=== PATIENT | female | born 1940 | race American Indian/Alaskan Native ===

== ENCOUNTER 2017-09-14 03:24 | Emergency (ER) | payer MEDICARE ==
[2017-09-14] MEDS ORDERED: ASPIRIN PO ONE (03:41)
[2017-09-14] MEDS ORDERED: NORMODYNE IV ONE ×2 (03:50→05:15)
[2017-09-14] MEDS ORDERED: SUBLIMAZE IV ONE (03:50)
[2017-09-14 04:01] LABS: Basophils % (Auto) 0.4 % (0.0-1.8); Eosinophils # (Auto) 0.1 K/mm3 (0.0-0.4); Eosinophils % (Auto) 2.2 % (0.0-4.3); Hematocrit 37.2 % (30.3-42.9); Hemoglobin 11.6 gm/dl (10.1-14.3); Lymphocytes # (Auto) 1.6 K/mm3 (1.2-5.4); Lymphocytes % (Auto) 30.3 % (13.4-35.0); Mean Corpuscular HGB Conc 31 % (30-34); Mean Corpuscular Volume 74 fl (79-97); Monocytes # (Auto) 0.4 K/mm3 (0.0-0.8); Monocytes % (Auto) 8.2 % (0.0-7.3); Platelet Count 248 K/mm3 (140-440); Red Blood Count 5.05 M/mm3 (3.65-5.03); Red Cell Distribution Width 14.9 % (13.2-15.2)
[2017-09-14 04:07] LABS: Mean Corpuscular Hemoglobin 23 pg (28-32)
[2017-09-14 04:14] LABS: BUN/Creatinine Ratio 17; Blood Urea Nitrogen 25 mg/dL (7-17); Calcium 9.4 mg/dL (8.4-10.2); Hemolysis Index 3
--- NOTE | 2017-09-14 04:16 | XRay Report ---
FINAL REPORT PROCEDURE: XR CHEST 1V AP TECHNIQUE: Chest radiograph anteroposterior view. CPT 66546 HISTORY: chest pain COMPARISON: No prior studies are available for comparison. FINDINGS: Heart: Normal. Mediastinum/Vessels: Normal. Lungs/Pleural space: Normal. Bony thorax: No acute osseous abnormality. Life support devices: None. IMPRESSION: No acute cardiopulmonary abnormality.
--- NOTE | 2017-09-14 05:20 | Emergency Department Report ---
HPI - General Chief Complaint: Chest Pain Time Seen by Provider: 09/14/17 04:54 - HPI HPI: The patient is a 77-year-old female who presents for evaluation of dyspnea and palpitations. The patient states that at 2 AM, approximately 2 hours prior to arrival, she developed sudden onset of racing of the heart and severe transient dyspnea, exacerbated with exertion, improved at rest. She is adamant that at no time did she experienced chest pain. She also states that she has no dyspnea whatsoever now, and that her dyspnea resolved shortly after onset. The patient denies fever, trauma to the chest, cough, syncope, chest pain, hemoptysis, unilateral leg swelling, recent immobilization, history of DVT or PE , hx of recent cancer. ED Past Medical Hx - Past Medical History Previous Medical History?: Yes Hx Hypertension: Yes Hx Diabetes: Yes Hx GERD: Yes Hx Arthritis: Yes Additional medical history: High cholesterol - Surgical History Past Surgical History?: Yes Additional Surgical History: Chase. lumpectomy - Social History Smoking Status: Never Smoker Substance Use Type: None - Medications Home Medications: Home Medications Medication Instructions Recorded Confirmed Last Taken Type Aspirin [Aspirin BABY CHEW TAB] 81 mg PO QDAY 10/10/14 10/10/14 10/10/14 History AtorvaSTATin [Lipitor] 40 mg PO DAILY 10/10/14 10/10/14 10/09/14 History Famotidine 10/10/14 10/10/14 Unknown History Hydrochlorothiazide 10/10/14 10/10/14 10/10/14 History Insulin Glargine [Lantus] 10/10/14 10/10/14 10/09/14 History Insulin Lispro Prot/Lispro 10/10/14 10/10/14 10/10/14 History [HumaLOG Mix 75/25 Vial] Lisinopril 40 mg PO DAILY 10/10/14 10/10/14 10/07/14 History Metformin HCl 500 mg PO BID 10/10/14 10/10/14 10/10/14 History ED Review of Systems ROS: Stated complaint: CHEST PAIN Other details as noted in HPI Constitutional: denies: fever ENT: denies: throat or neck pain Respiratory: denies: cough reports shortness of breath Cardiovascular: denies: chest pain reports palpitations Endocrine: denies unexplained weight loss or gain Gastrointestinal: denies: abdominal pain, nausea Genitourinary: denies: dysuria Musculoskeletal: denies: leg swelling Skin: denies: rash Neurological: denies: headache Hematological/Lymphatic: denies: easy bleeding or easy bruising Psych: denies sadness or hopelessness Physical Exam - Physical Exam Vital Signs: Vital Signs 09/14/17 09/14/17 09/14/17 03:38 04:05 04:27 Temperature 97.8 F 98.1 F Pulse Rate 104 H 74 77 Respiratory 20 19 Rate Blood Pressure 198/78 Blood Pressure 234/82 208/88 [Right] O2 Sat by Pulse 97 98 Oximetry 09/14/17 04:30 Temperature Pulse Rate 71 Respiratory 17 Rate Blood Pressure 194/77 Blood Pressure [Right] O2 Sat by Pulse Oximetry Physical Exam: General: well-nourished, well-developed, no acute distress Head: Normocephalic, atraumatic Eyes: normal sclera ENT: Mucous membranes are pale and dry Neck: No neck stiffness, no cervical adenopathy Respiratory: Breath sounds equal bilaterally, no wheezing, rales, or rhonchi Cardio: S1 and S2 present, no murmurs, rubs, gallops, capillary refill is delayed Abdomen: Normoactive bowel sounds, soft abdomen, no rigidity, no guarding or rebound tenderness Chest WALL/Back: No tenderness to palpation of the chest wall, no CVA tenderness with percussion Musc: No pitting edema Skin: No rash Neuro: no facial drooping, normal speech Psych: Normal affect ED Course Vital Signs 09/14/17 09/14/17 09/14/17 03:38 04:05 04:27 Temperature 97.8 F 98.1 F Pulse Rate 104 H 74 77 Respiratory 20 19 Rate Blood Pressure 198/78 Blood Pressure 234/82 208/88 [Right] O2 Sat by Pulse 97 98 Oximetry 09/14/17 04:30 Temperature Pulse Rate 71 Respiratory 17 Rate Blood Pressure 194/77 Blood Pressure [Right] O2 Sat by Pulse Oximetry ED Medical Decision Making - Lab Data Result diagrams: 09/14/17 03:43 09/14/17 03:43 - Medical Decision Making The patient was seen and examined by myself. The patient is placed on a dog and cat food cook and continuous pulse ox. On initial evaluation, the patient was found to be in no distress. EKG was negative for findings suggestive of acute cardiac infarct. The patient is given IV pain medicine, and IV labetalol for treatment of her elevated blood pressure. Labs and imaging are obtained. Chest x-ray is negative for pneumothorax, focal consolidation, pulmonary vascular congestion, pleural effusion, or other obvious acute cardiopulmonary disease process. Lab results were non-concerning including levels of troponin, WBC, hemoglobin, hematocrit, electrolytes, renal function. As the patient denied chest pain, and received an essentially unremarkable workup, ACS and PE cause of her symptoms is unlikely. On reexamination the patient's blood pressure was found to decrease outside of range concerning for hypertensive emergency. The patient is stable for discharge with outpatient follow-up. The patient is given follow-up and return instructions. The patient expressed understanding and agreed with the plan. The patient is discharged in stable condition. Critical care attestation.: If time is entered above; I have spent that time in minutes in the direct care of this critically ill patient, excluding procedure time. ED Disposition Clinical Impression: Hypertensive urgency, Palpitation, Dehydration Disposition: - TO HOME OR SELFCARE Is pt being admited?: No Does the pt Need Aspirin: No Condition: Stable Instructions: Hypertension (ED), Palpitations (ED), Dehydration (ED) Referrals: PRIMARY CARE, [Primary Care Provider] - 3-5 Days ALIX LEE MD [Staff Physician] - 3-5 Days Time of Disposition: 05:25
[2017-09-14 05:42] VITALS: BP 161/61
== END 2017-09-14 06:18 | disposition home or self-care (01) ==
LOC: ED 03:24
DX: I16.0 Hypertensive urgency (principal); E86.0 Dehydration; R00.2 Palpitations; E11.9 Type 2 diabetes mellitus without complications; K21.9 Gastro-esophageal reflux disease without esophagitis; M19.90 Unspecified osteoarthritis, unspecified site; E78.00 Pure hypercholesterolemia, unspecified; Z79.4 Long term (current) use of insulin
CPT/HCPCS: 36415; 71045; 80048; 83880; 84484; 85025; 93005; 93010; 96374; 96375; 96376; 99284; J3010

== ENCOUNTER 2018-10-03 08:47 | Emergency (ER) | payer MEDICARE ==
[2018-10-03] MEDS ORDERED: ASPIRIN PO ONE (08:56)
[2018-10-03 09:30] LABS: Basophils % (Auto) 0.6 % (0.0-1.8); Eosinophils # (Auto) 0.2 K/mm3 (0.0-0.4); Eosinophils % (Auto) 3.2 % (0.0-4.3); Hematocrit 38.7 % (30.3-42.9); Hemoglobin 12.5 gm/dl (10.1-14.3); Lymphocytes # (Auto) 1.6 K/mm3 (1.2-5.4); Lymphocytes % (Auto) 29.5 % (13.4-35.0); Mean Corpuscular HGB Conc 32 % (30-34); Mean Corpuscular Volume 71 fl (79-97); Monocytes # (Auto) 0.4 K/mm3 (0.0-0.8); Monocytes % (Auto) 7.7 % (0.0-7.3); Platelet Count 224 K/mm3 (140-440); Red Blood Count 5.43 M/mm3 (3.65-5.03); Red Cell Distribution Width 15.2 % (13.2-15.2)
[2018-10-03] MEDS ORDERED: LOPRESSOR PO ONE (09:45)
--- NOTE | 2018-10-03 09:57 | Emergency Department Report ---
ED General Adult HPI - General Chief complaint: High BP Stated complaint: BP HIGH Time Seen by Provider: 10/03/18 09:31 Source: patient Mode of arrival: Ambulatory Limitations: No Limitations - History of Present Illness Initial comments: Patient is a 78-year-old female who presents with palpitations up and going on since this morning. Patient states that she took her double dose of her hydralazine as her maintenance representative told her that her blood pressure was elevated yesterday. However patient has been taking a double dose of her medication every single time and has took them 4 times a mild hydralazine as she should've taken. Patient states obligations or mild nothing makes them better and nothing makes them worse. - Related Data Home Medications Medication Instructions Recorded Confirmed Last Taken Aspirin [Aspirin BABY CHEW TAB] 81 mg PO QDAY 10/10/14 02/28/18 10/10/14 AtorvaSTATin [Lipitor] 40 mg PO DAILY 10/10/14 02/28/18 10/09/14 Insulin Glargine [Lantus VIAL] 45 unit SUB-Q QHS 10/10/14 02/28/18 10/09/14 Insulin Lispro Prot/Lispro 10 unit SUB-Q AC 10/10/14 02/28/18 10/10/14 [HumaLOG Mix 75/25 Vial] Amlodipine Besylate 10 mg PO DAILY 02/28/18 02/28/18 Unknown Previous Rx's Medication Instructions Recorded Last Taken Type Pantoprazole [Protonix TAB] 40 mg PO QDAY #30 tablet 02/28/18 Unknown Rx hydrALAZINE [Apresoline TAB] 50 mg PO Q8HR #90 tablet 03/02/18 Unknown Rx Amoxicillin/Potassium Clav 1 each PO BID #20 tablet 03/08/18 Unknown Rx [Augmentin 875-125 Tablet] Cipro/Dexameth 0.3/0.1% [Ciprodex 4 drops OT BID #1 bottle 03/08/18 Unknown Rx OTIC] Butalb/Acetamin/Caff 50-325-40 1 tab PO Q6HR PRN #10 tab 04/07/18 Unknown Rx [Fioricet] Allergies Allergy/AdvReac Type Severity Reaction Status Date / Time No Known Allergies Allergy Verified 10/03/18 08:49 ED Review of Systems ROS: Stated complaint: BP HIGH Other details as noted in HPI Constitutional: denies: chills, fever Eyes: denies: eye pain, eye discharge, vision change ENT: denies: ear pain, throat pain Respiratory: denies: cough, shortness of breath, wheezing Cardiovascular: palpitations. denies: chest pain Endocrine: no symptoms reported Gastrointestinal: denies: abdominal pain, nausea, diarrhea Genitourinary: denies: urgency, dysuria, discharge Musculoskeletal: denies: back pain, joint swelling, arthralgia Skin: denies: rash, lesions Neurological: denies: headache, weakness, paresthesias Psychiatric: denies: anxiety, depression Hematological/Lymphatic: denies: easy bleeding, easy bruising ED Past Medical Hx - Past Medical History Hx Hypertension: Yes Hx Diabetes: Yes Hx GERD: Yes Hx Renal Disease: Yes (no dialysis at this time) Hx Arthritis: Yes Additional medical history: High cholesterol - Surgical History Additional Surgical History: Chase. lumpectomy - Social History Smoking Status: Never Smoker Substance Use Type: None - Medications Home Medications: Home Medications Medication Instructions Recorded Confirmed Last Taken Type Aspirin [Aspirin BABY CHEW TAB] 81 mg PO QDAY 10/10/14 02/28/18 10/10/14 History AtorvaSTATin [Lipitor] 40 mg PO DAILY 10/10/14 02/28/18 10/09/14 History Insulin Glargine [Lantus VIAL] 45 unit SUB-Q QHS 10/10/14 02/28/18 10/09/14 History Insulin Lispro Prot/Lispro 10 unit SUB-Q AC 10/10/14 02/28/18 10/10/14 History [HumaLOG Mix 75/25 Vial] Amlodipine Besylate 10 mg PO DAILY 02/28/18 02/28/18 Unknown History Pantoprazole [Protonix TAB] 40 mg PO QDAY #30 tablet 02/28/18 Unknown Rx hydrALAZINE [Apresoline TAB] 50 mg PO Q8HR #90 tablet 03/02/18 Unknown Rx Amoxicillin/Potassium Clav 1 each PO BID #20 tablet 03/08/18 Unknown Rx [Augmentin 875-125 Tablet] Cipro/Dexameth 0.3/0.1% [Ciprodex 4 drops OT BID #1 bottle 03/08/18 Unknown Rx OTIC] Butalb/Acetamin/Caff 50-325-40 1 tab PO Q6HR PRN #10 tab 04/07/18 Unknown Rx [Fioricet] ED Physical Exam - General Limitations: No Limitations General appearance: alert, in no apparent distress - Head Head exam: Present: atraumatic, normocephalic - Eye Eye exam: Present: normal appearance - ENT ENT exam: Present: mucous membranes moist - Neck Neck exam: Present: normal inspection - Respiratory Respiratory exam: Present: normal lung sounds bilaterally. Absent: respiratory distress - Cardiovascular Cardiovascular Exam: Present: regular rate, normal rhythm. Absent: systolic murmur, diastolic murmur, rubs, gallop - GI/Abdominal GI/Abdominal exam: Present: soft, normal bowel sounds - Extremities Exam Extremities exam: Present: normal inspection - Back Exam Back exam: Present: normal inspection - Neurological Exam Neurological exam: Present: alert, oriented X3 - Psychiatric Psychiatric exam: Present: normal affect, normal mood - Skin Skin exam: Present: warm, dry, intact, normal color. Absent: rash ED Course Vital Signs 10/03/18 10/03/18 10/03/18 08:52 09:36 09:45 Temperature 97.7 F Pulse Rate 98 H 88 85 Respiratory 16 Rate Blood Pressure 190/66 Blood Pressure 186/73 190/66 [Left] O2 Sat by Pulse 98 99 Oximetry 10/03/18 10/03/18 10/03/18 09:57 10:00 10:30 Temperature Pulse Rate 81 83 66 Respiratory 12 13 Rate Blood Pressure 188/75 192/69 192/69 Blood Pressure [Left] O2 Sat by Pulse 99 97 Oximetry 10/03/18 10/03/18 11:00 11:30 Temperature Pulse Rate 66 67 Respiratory 13 14 Rate Blood Pressure 162/63 174/65 Blood Pressure [Left] O2 Sat by Pulse 99 99 Oximetry ED Medical Decision Making - Lab Data Result diagrams: 10/03/18 09:07 10/03/18 10:34 Lab Results 10/03/18 10/03/18 Range/Units 09:07 10:34 WBC 5.3 (4.5-11.0) K/mm3 RBC 5.43 H (3.65-5.03) M/mm3 Hgb 12.5 (10.1-14.3) gm/dl Hct 38.7 (30.3-42.9) % MCV 71 L (79-97) fl MCH 23 L (28-32) pg MCHC 32 (30-34) % RDW 15.2 (13.2-15.2) % Plt Count 224 (140-440) K/mm3 Lymph % (Auto) 29.5 (13.4-35.0) % [place] % (Auto) 7.7 H (0.0-7.3) % Eos % (Auto) 3.2 (0.0-4.3) % Baso % (Auto) 0.6 (0.0-1.8) % Lymph # 1.6 (1.2-5.4) K/mm3 [place] # 0.4 (0.0-0.8) K/mm3 Eos # 0.2 (0.0-0.4) K/mm3 Baso # 0.0 (0.0-0.1) K/mm3 Seg Neutrophils % 59.0 (40.0-70.0) % Seg Neutrophils # 3.1 (1.8-7.7) K/mm3 Sodium 134 L (137-145) mmol/L Potassium 3.5 L (3.6-5.0) mmol/L Chloride 94.6 L (98-107) mmol/L Carbon Dioxide 23 (22-30) mmol/L Anion Gap 20 mmol/L BUN 25 H (7-17) mg/dL Creatinine 1.8 H (0.7-1.2) mg/dL Estimated GFR 33 ml/min BUN/Creatinine Ratio 14 % Glucose 312 H (65-100) mg/dL Calcium 9.3 (8.4-10.2) mg/dL Troponin T < 0.010 (0.00-0.029) ng/mL - EKG Data -: EKG Interpreted by Il - EKG Data 10/03/18 12:12 EKG shows sinus tachycardia rate 101 left atrial enlargement and nonspecific repolarization abnormality no axis deviation impression sinus tachycardia - Radiology Data Radiology results: report reviewed, image reviewed This x-ray: Shows no acute cardiopulmonary disease - Medical Decision Making Chief Medical diagnosis: Palpitations secondary to hydralazine Differential medical diagnosis: Electrolyte abnormality, arrhythmia I will get EKG, CBC, BMP will give patient oral metoprolol and we'll reevaluate the patient. She is feeling better heart rates in the 70s and it was close to the 100s earlier on. Patient given additional verbal discharge instructions patient agrees with plan to discharge. Critical care attestation.: If time is entered above; I have spent that time in minutes in the direct care of this critically ill patient, excluding procedure time. ED Disposition Clinical Impression: Palpitations Disposition: DC-01 TO HOME OR SELFCARE Is pt being admited?: No Does the pt Need Aspirin: No Condition: Stable Instructions: Palpitations (ED) Referrals: CASSIDY SANCHEZ MD [Primary Care Provider] - 3-5 Days
--- NOTE | 2018-10-03 10:01 | XRay Report ---
CHEST 1 VIEW INDICATION / CLINICAL INFORMATION: Chest Pain. COMPARISON: Report from prior chest radiograph dated 02/27/2018. Images are not available for direct comparison. FINDINGS: SUPPORT DEVICES: None. HEART / MEDIASTINUM: No significant abnormality. LUNGS / PLEURA: No significant pulmonary or pleural abnormality. .No pneumothorax. ADDITIONAL FINDINGS: No significant additional findings. IMPRESSION: 1. No acute findings. Signer Name: Michael Colin MD Signed: 10/03/2018 9:57 AM Workstation Name: [id number]
[2018-10-03 11:17] LABS: BUN/Creatinine Ratio 14; Blood Urea Nitrogen 25 mg/dL (7-17); Calcium 9.3 mg/dL (8.4-10.2); Hemolysis Index 6
[2018-10-03 12:46] VITALS: BP 133/59
== END 2018-10-03 14:00 | disposition home or self-care (01) ==
LOC: ED 08:47
DX: R00.2 Palpitations (principal); K21.9 Gastro-esophageal reflux disease without esophagitis; E11.22 Type 2 diabetes mellitus with diabetic chronic kidney disease; I12.9 Hypertensive chronic kidney disease with stage 1 through stage 4 chronic kidney disease, or unspecified chronic kidney disease; N18.9 Chronic kidney disease, unspecified; M19.90 Unspecified osteoarthritis, unspecified site; Z87.448 Personal history of other diseases of urinary system; Z90.12 Acquired absence of left breast and nipple; Z79.899 Other long term (current) drug therapy
CPT/HCPCS: 36415; 71045; 80048; 82962; 84484; 85025; 93005; 93010

== ENCOUNTER 2018-10-30 19:29 | Emergency (ER) | payer MEDICARE ==
[2018-10-30] MEDS ORDERED: ASPIRIN PO ONE (19:50)
--- NOTE | 2018-10-30 19:50 | Event Note ---
ED Screening Note Date of service: 10/30/18 Time: 19:46 ED Screening Note: This is a 78 y.o. F. that presents to ER with weakness, chest pain, and elevated blood pressure. Patient started on clonidine 3 days ago by PCP Dr. Manriquez at [facility]. PMH HTN, heart disease, GERD, HLD, CKD stage 3, and arthritis. This initial assessment/diagnostic orders/clinical plan/treatment(s) is/are subject to change based on patients health status, clinical progression and re- assessment by fellow clinical providers in the ED. Further treatment and workup at subsequent clinical providers discretion. Patient/guardian urged not to elope from the ED as their condition may be serious if not clinically assessed and managed. Initial orders include: Labs, ekg, cxr
--- NOTE | 2018-10-30 20:46 | XRay Report ---
CHEST 2 VIEWS INDICATION: Chest Pain. COMPARISON: 10/03/2018 FINDINGS: Support devices: None. Heart: Within normal limits. Lungs: No acute air space or interstitial disease. Pleura: No significant pleural effusion. No pneumothorax. Additional findings: None. IMPRESSION: 1. No acute findings. Signer Name: Carlos Blunt MD Signed: 10/30/2018 8:41 PM Workstation Name: [id number]
[2018-10-30 21:13] LABS: Basophils % (Auto) 0.4 % (0.0-1.8); Eosinophils # (Auto) 0.1 K/mm3 (0.0-0.4); Eosinophils % (Auto) 1.6 % (0.0-4.3); Hematocrit 34.6 % (30.3-42.9); Hemoglobin 11.4 gm/dl (10.1-14.3); Lymphocytes # (Auto) 0.8 K/mm3 (1.2-5.4); Lymphocytes % (Auto) 16.5 % (13.4-35.0); Mean Corpuscular HGB Conc 33 % (30-34); Mean Corpuscular Volume 71 fl (79-97); Monocytes # (Auto) 0.4 K/mm3 (0.0-0.8); Monocytes % (Auto) 8.1 % (0.0-7.3); Platelet Count 230 K/mm3 (140-440); Red Blood Count 4.85 M/mm3 (3.65-5.03); Red Cell Distribution Width 15.5 % (13.2-15.2)
[2018-10-30 21:33] LABS: BUN/Creatinine Ratio 12; Blood Urea Nitrogen 22 mg/dL (7-17); Hemolysis Index 17
[2018-10-30] MEDS ORDERED: NORMODYNE IV ONE (23:38)
--- NOTE | 2018-10-31 00:17 | Emergency Department Report ---
ED Chest Pain HPI - General Chief Complaint: Chest Pain Stated Complaint: WEAK,TIGHTEN OF CHEST/ELEVATED BP Time Seen by Provider: 10/30/18 19:46 Source: patient Mode of arrival: Ambulatory Limitations: No Limitations - History of Present Illness Initial Comments: Patient reports that her PCP started her on Clonidine approximately 3 days ago. Reports uncontrolled HTN at home. Complaint: chest pain -: hour(s) Onset: during rest Pain Location: substernal Pain Radiation: back Severity: mild Severity scale (0 -10): 3 Quality: tightness Consistency: intermittent Improves With: nothing Worsens With: nothing re: denies: nausea, vomting, diaphoresis, dyspnea, sense of impending doom Other Symptoms: leg swelling. denies: cough, fever, syncope, rash, acid taste in mouth, palpitations, burping - Related Data Home Medications Medication Instructions Recorded Confirmed Last Taken Aspirin [Aspirin BABY CHEW TAB] 81 mg PO QDAY 10/10/14 10/30/18 10/10/14 AtorvaSTATin [Lipitor] 40 mg PO DAILY 10/10/14 10/30/18 10/09/14 Insulin Glargine [Lantus VIAL] 45 unit SUB-Q QHS 10/10/14 10/30/18 10/09/14 Insulin Lispro Prot/Lispro 10 unit SUB-Q AC 10/10/14 10/30/18 10/10/14 [HumaLOG Mix 75/25 Vial] Amlodipine Besylate 10 mg PO DAILY 02/28/18 10/30/18 Unknown Clonidine HCl [Kapvay] 0.1 mg PO BID 10/30/18 10/30/18 Unknown Gabapentin [Neurontin] 300 mg PO BID 10/30/18 10/30/18 Unknown Latanoprost 0.005% [Xalatan 0.005%] 1 drop OP QPM 10/30/18 10/30/18 Unknown Metoprolol 25 mg DAILY 10/30/18 10/30/18 Unknown Previous Rx's Medication Instructions Recorded Last Taken Type Pantoprazole [Protonix TAB] 40 mg PO QDAY #30 tablet 02/28/18 Unknown Rx hydrALAZINE [Apresoline TAB] 50 mg PO Q8HR #90 tablet 03/02/18 Unknown Rx Allergies Allergy/AdvReac Type Severity Reaction Status Date / Time No Known Allergies Allergy Verified 10/03/18 08:49 Heart Score - HEART Score History: Moderately suspicious EKG: Non-specific Age: > 65 Risk factors: 1-2 risk factors Troponin: < normal limit HEART Score: 5 ED Review of Systems ROS: Stated complaint: WEAK,TIGHTEN OF CHEST/ELEVATED BP Other details as noted in HPI Other: GENERAL: No weight change, fatigue, weakness, fever, chills, or night sweats SKIN: No changes in skin or hair, no itching, no rashes, no jaundice HEAD: No trauma, headache, or visual changes EYES: No blurriness, tearing, itching, acute visual loss, conjunctival discoloration, or scleral icterus EARS: No hearing loss, tinnitus, vertigo, or earache NOSE: No rhinorrhea, stuffiness, sneezing, itching, or epistaxis MOUTH: No bleeding gums, hoarseness, sore throat, or swelling CARDIAC: Chest pain. Edema. No new murmur, palpitations, dyspnea on exertion, orthopnea, PND RESPIRATORY: No shortness of breath, wheeze, cough, sputum production, hemoptysis, pneumonia, asthma, bronchitis, or emphysema GI: No change in appetite, nausea, vomiting, dysphagia, change in bowel frequency, diarrhea, constipation, bleeding, hematemesis, melena, hematochezia, or abdominal pain URINARY: No frequency, urgency, polyuria, dysuria, hematuria, or incontinence MUSCULOSKELETAL: No muscle weakness, joint stiffness, decrease in range of motion, redness, swelling NEUROLOGIC: No loss of sensation, numbness, tingling, tremors, weakness, paralysis, seizures HEMATOLOGIC: No anemia, easy bruising, bleeding, petechiae, or purpura ENDOCRINE: No hot or cold intolerance, sweating, polyuria, polydipsia or, polyphagia no thyroid problems PSYCHIATRIC: No change in mood, no anxiety, no depression ED Past Medical Hx - Past Medical History Previous Medical History?: Yes Hx Hypertension: Yes Hx Diabetes: Yes Hx GERD: Yes Hx Renal Disease: Yes (no dialysis at this time) Hx Arthritis: Yes Additional medical history: High cholesterol - Surgical History Past Surgical History?: Yes Additional Surgical History: Chase. lumpectomy - Social History Smoking Status: Never Smoker Substance Use Type: None - Medications Home Medications: Home Medications Medication Instructions Recorded Confirmed Last Taken Type Aspirin [Aspirin BABY CHEW TAB] 81 mg PO QDAY 10/10/14 10/30/18 10/10/14 History AtorvaSTATin [Lipitor] 40 mg PO DAILY 10/10/14 10/30/18 10/09/14 History Insulin Glargine [Lantus VIAL] 45 unit SUB-Q QHS 10/10/14 10/30/18 10/09/14 History Insulin Lispro Prot/Lispro 10 unit SUB-Q AC 10/10/14 10/30/18 10/10/14 History [HumaLOG Mix 75/25 Vial] Amlodipine Besylate 10 mg PO DAILY 02/28/18 10/30/18 Unknown History Pantoprazole [Protonix TAB] 40 mg PO QDAY #30 tablet 02/28/18 10/30/18 Unknown Rx hydrALAZINE [Apresoline TAB] 50 mg PO Q8HR #90 tablet 03/02/18 10/30/18 Unknown Rx Clonidine HCl [Kapvay] 0.1 mg PO BID 10/30/18 10/30/18 Unknown History Gabapentin [Neurontin] 300 mg PO BID 10/30/18 10/30/18 Unknown History Latanoprost 0.005% [Xalatan 0.005%] 1 drop OP QPM 10/30/18 10/30/18 Unknown History Metoprolol 25 mg DAILY 10/30/18 10/30/18 Unknown History ED Physical Exam - General Limitations: No Limitations - Other Other exam information: GENERAL: Patient in no acute distress HEAD: Normocephalic, atraumatic EYES: PERRLA, EOM intact, no scleral icterus, no papilledema, no conjunctival hemorrhage, visual lombardo and acuity wnl, NOSE: No tenderness, discharge, sinus tenderness MOUTH: No erythema, bleeding, exudate HEART: 1+ peripheral pitting edema. Regular rate and rhythm, no murmur, S1-S2 are auscultated, pulses are symmetric LUNGS: No wheezing, rales, rhonchi, bilateral breath sounds ABDOMEN: Normal bowel sounds, no tenderness, no rebound, no guarding, no masses, no CVA tenderness MUSCULOSKELETAL: Normal joint range of motion, no redness, no swelling, no te nderness NEUROLOGIC: GCS 15, Alert and Oriented x3, Cranial nerves intact, normal sensation, normal strength, normal gait, no cerebellar deficit PSYCHIATRIC: No homicidal or suicidal ideation, no anxiety, no depression, no hallucinations SKIN: Skin is warm and dry, no wounds, no rashes ED Course Vital Signs 10/30/18 10/30/18 10/30/18 19:47 21:03 21:16 Temperature 97.6 F Pulse Rate 74 69 62 Respiratory 20 12 17 Rate Blood Pressure 183/57 170/62 O2 Sat by Pulse 97 100 100 Oximetry 10/30/18 10/30/18 10/30/18 21:30 22:16 23:00 Temperature Pulse Rate 64 74 Respiratory 13 11 L 12 Rate Blood Pressure 158/64 165/64 196/71 O2 Sat by Pulse 99 99 98 Oximetry 10/30/18 10/30/18 10/30/18 23:16 23:30 23:45 Temperature Pulse Rate 71 70 Respiratory 18 28 H 18 Rate Blood Pressure 196/71 207/65 196/71 O2 Sat by Pulse 99 97 99 Oximetry 10/31/18 10/31/18 10/31/18 00:01 00:11 00:15 Temperature Pulse Rate 65 98 H 61 Respiratory 17 28 H 12 Rate Blood Pressure 158/59 178/68 153/63 O2 Sat by Pulse 100 96 97 Oximetry 10/31/18 10/31/18 00:20 00:25 Temperature Pulse Rate Respiratory 16 17 Rate Blood Pressure 165/65 176/67 O2 Sat by Pulse 97 96 Oximetry YANDEL score - Yandel Score Age > 65: (1) Yes Aspirin use within the Past 7 Days: (1) Yes 3 or more CAD Risk Factors: (0) No 2 or more Angina events in past 24 hrs: (0) No Known CAD with more than 50% Stenosis: (0) No Elevated Cardiac Markers: (0) No ST Deviation Greater than 0.5mm: (0) No YANDEL Score: 2 ED Medical Decision Making - Lab Data Result diagrams: 10/30/18 20:58 10/30/18 20:58 Laboratory Results - last 24 hr 10/30/18 10/30/18 10/30/18 20:58 20:58 20:58 WBC 4.9 RBC 4.85 Hgb 11.4 Hct 34.6 MCV 71 L MCH 24 L MCHC 33 RDW 15.5 H Plt Count 230 Lymph % (Auto) 16.5 [place] % (Auto) 8.1 H Eos % (Auto) 1.6 Baso % (Auto) 0.4 Lymph # 0.8 L [place] # 0.4 Eos # 0.1 Baso # 0.0 Seg Neutrophils % 73.4 H Seg Neutrophils # 3.6 D-Dimer Sodium 133 L Potassium 4.4 Chloride 93.7 L Carbon Dioxide 23 Anion Gap 21 BUN 22 H Creatinine 1.9 H Estimated GFR 31 BUN/Creatinine Ratio 12 Glucose 189 H Calcium 9.0 Total Creatine Kinase 199 H Troponin T < 0.010 NT-Pro-B Natriuret Pep 134.8 10/30/18 10/30/18 20:58 21:50 WBC RBC Hgb Hct MCV MCH MCHC RDW Plt Count Lymph % (Auto) [place] % (Auto) Eos % (Auto) Baso % (Auto) Lymph # [place] # Eos # Baso # Seg Neutrophils % Seg Neutrophils # D-Dimer 354.61 H Sodium Potassium Chloride Carbon Dioxide Anion Gap BUN Creatinine Estimated GFR BUN/Creatinine Ratio Glucose Calcium Total Creatine Kinase Troponin T < 0.010 NT-Pro-B Natriuret Pep - EKG Data When compared to previous EKG there are: no significant change - Radiology Data Radiology results: report reviewed - Medical Decision Making Patient comfortable. Updated with results. CTA scanner not working at [facility] for the rest of the entire night per radiology and Charge nurse. Patient with concerns for potential dissection. Would recommend CTA despite CKD for evaluation dissection. [facility] reports no beds with approximately 40 patients ahead of patient for transfer. Dr. Matt DC at [facility] updated and accepts transfer for further evaluation. Critical care attestation.: If time is entered above; I have spent that time in minutes in the direct care of this critically ill patient, excluding procedure time. ED Disposition Clinical Impression: Hypertensive urgency, Elevated d-dimer Chest pain Qualifiers: Chest pain type: unspecified Qualified Code(s): R07.9 - Chest pain, unspecified Chronic kidney disease Qualifiers: Chronic kidney disease stage: unspecified stage Qualified Code(s): N18.9 - Chronic kidney disease, unspecified Disposition: DC/TX-70 ANOTHER TYPE HLTHCARE Is pt being admited?: No Condition: Stable Instructions: Chest Pain (ED) Referrals: DAVID DIGGS MD [Primary Care Provider] - 3-5 Days
[2018-10-31 00:30] VITALS: BP 176/67
== END 2018-10-31 01:00 | disposition other institution (70) ==
LOC: ED 19:29
DX: I16.0 Hypertensive urgency (principal); I12.9 Hypertensive chronic kidney disease with stage 1 through stage 4 chronic kidney disease, or unspecified chronic kidney disease; E11.22 Type 2 diabetes mellitus with diabetic chronic kidney disease; N18.9 Chronic kidney disease, unspecified; R79.89 Other specified abnormal findings of blood chemistry; K21.0 Gastro-esophageal reflux disease with esophagitis; M19.90 Unspecified osteoarthritis, unspecified site; E78.00 Pure hypercholesterolemia, unspecified; Z79.4 Long term (current) use of insulin; Z98.890 Other specified postprocedural states; Z79.82 Long term (current) use of aspirin; Z79.899 Other long term (current) drug therapy
CPT/HCPCS: 36415; 71046; 80048; 82550; 83880; 84484; 85025; 85379; 93005; 93010; 96374; 99285

== ENCOUNTER 2019-01-09 14:20 | Inpatient (IN) | payer MEDICARE ==
--- NOTE | 2019-01-09 15:25 | Event Note ---
ED Screening Note Date of service: 01/09/19 Time: 15:22 ED Screening Note: 78 y/o female comes for elevated blood sugars after she eat. Lantus 50 units, Novlog ac No sliding scale. Abdominal cramps and diarrhea but has improved. No longer vomiting. Vitals are stable. This initial assessment/diagnostic orders/clinical plan/treatment(s) is/are subject to change based on patients health status, clinical progression and re- assessment by fellow clinical providers in the ED. Further treatment and workup at subsequent clinical providers discretion. Patient/guardian urged not to elope from the ED as their condition may be serious if not clinically assessed and managed. Initial orders include:
--- NOTE | 2019-01-09 15:49 | Emergency Department Report ---
ED General Adult HPI - General Chief complaint: Hyperglycemia Stated complaint: DEHYDRATION Time Seen by Provider: 01/09/19 15:21 Source: patient Mode of arrival: Ambulatory Limitations: No Limitations - Related Data Home Medications Medication Instructions Recorded Confirmed Last Taken Aspirin [Aspirin BABY CHEW TAB] 81 mg PO QDAY 10/10/14 10/30/18 10/10/14 AtorvaSTATin [Lipitor] 40 mg PO DAILY 10/10/14 10/30/18 10/09/14 Insulin Glargine [Lantus VIAL] 45 unit SUB-Q QHS 10/10/14 10/30/18 10/09/14 Insulin Lispro Prot/Lispro 10 unit SUB-Q AC 10/10/14 10/30/18 10/10/14 [HumaLOG Mix 75/25 Vial] Amlodipine Besylate 10 mg PO DAILY 02/28/18 10/30/18 Unknown Clonidine HCl [Kapvay] 0.1 mg PO BID 10/30/18 10/30/18 Unknown Gabapentin [Neurontin] 300 mg PO BID 10/30/18 10/30/18 Unknown Latanoprost 0.005% [Xalatan 0.005%] 1 drop OP QPM 10/30/18 10/30/18 Unknown Metoprolol 25 mg DAILY 10/30/18 10/30/18 Unknown Previous Rx's Medication Instructions Recorded Last Taken Type Pantoprazole [Protonix TAB] 40 mg PO QDAY #30 tablet 02/28/18 Unknown Rx hydrALAZINE [Apresoline TAB] 50 mg PO Q8HR #90 tablet 03/02/18 Unknown Rx Allergies Allergy/AdvReac Type Severity Reaction Status Date / Time No Known Allergies Allergy Verified 10/03/18 08:49 ED Review of Systems ROS: Stated complaint: DEHYDRATION Other details as noted in HPI ED Past Medical Hx - Past Medical History Previous Medical History?: Yes Hx Hypertension: Yes Hx Diabetes: Yes Hx GERD: Yes Hx Renal Disease: Yes (no dialysis at this time) Hx Arthritis: Yes Additional medical history: High cholesterol - Surgical History Past Surgical History?: Yes Additional Surgical History: Chase. lumpectomy - Social History Smoking Status: Never Smoker Substance Use Type: None - Medications Home Medications: Home Medications Medication Instructions Recorded Confirmed Last Taken Type Aspirin [Aspirin BABY CHEW TAB] 81 mg PO QDAY 10/10/14 10/30/18 10/10/14 History AtorvaSTATin [Lipitor] 40 mg PO DAILY 10/10/14 10/30/18 10/09/14 History Insulin Glargine [Lantus VIAL] 45 unit SUB-Q QHS 10/10/14 10/30/18 10/09/14 History Insulin Lispro Prot/Lispro 10 unit SUB-Q AC 10/10/14 10/30/18 10/10/14 History [HumaLOG Mix 75/25 Vial] Amlodipine Besylate 10 mg PO DAILY 02/28/18 10/30/18 Unknown History Pantoprazole [Protonix TAB] 40 mg PO QDAY #30 tablet 02/28/18 10/30/18 Unknown Rx hydrALAZINE [Apresoline TAB] 50 mg PO Q8HR #90 tablet 03/02/18 10/30/18 Unknown Rx Clonidine HCl [Kapvay] 0.1 mg PO BID 10/30/18 10/30/18 Unknown History Gabapentin [Neurontin] 300 mg PO BID 10/30/18 10/30/18 Unknown History Latanoprost 0.005% [Xalatan 0.005%] 1 drop OP QPM 10/30/18 10/30/18 Unknown History Metoprolol 25 mg DAILY 10/30/18 10/30/18 Unknown History ED Physical Exam - General Limitations: No Limitations ED Course Vital Signs 01/09/19 15:21 Temperature 97.6 F Pulse Rate 81 Respiratory 16 Rate Blood Pressure 156/59 O2 Sat by Pulse 97 Oximetry Critical care attestation.: If time is entered above; I have spent that time in minutes in the direct care of this critically ill patient, excluding procedure time. ED Disposition Condition: Stable
--- NOTE | 2019-01-09 15:50 | Emergency Department Report ---
ED General Adult HPI - General Chief complaint: Hyperglycemia Stated complaint: DEHYDRATION Time Seen by Provider: 01/09/19 15:45 Source: patient Mode of arrival: Ambulatory Limitations: No Limitations - History of Present Illness Initial comments: Condition is a 78-year-old female that presents emergency room with complaints of fluctuating blood sugar, dehydration, nausea vomiting and diarrhea. Patient states her blood sugars and fluctuating for 2 or 3 weeks. Patient states that 2 days ago started having nausea and vomiting and diarrhea. Patient denies blood in her vomitus and blood in her stool. Patient denies fever and chills. Patient states she feels dry. Patient states she's had increased thirst. Patient denies increased urination. Patient denies chest pain shortness of breath. Patient denies syncope. Patient denies loss of consciousness. Patient denies blurry vision. Patient denies dizziness. Patient denies lightheadednes s. Patient denies abdominal pain. -: Gradual Consistency: constant Improves with: rest Worsens with: eating, movement Associated Symptoms: loss of appetite, malaise, nausea/vomiting. denies: confusion, chest pain, cough, diaphoresis, fever/chills, headaches, rash, seizure, shortness of breath, syncope - Related Data Home Medications Medication Instructions Recorded Confirmed Last Taken Aspirin [Aspirin BABY CHEW TAB] 81 mg PO DAILY 10/10/14 01/09/19 10/10/14 Insulin Glargine [Lantus VIAL] 45 unit SUB-Q QHS 10/10/14 01/09/19 10/09/14 Amlodipine Besylate 10 mg PO DAILY 02/28/18 01/09/19 Unknown Gabapentin [Neurontin] 300 mg PO DAILY 10/30/18 01/09/19 Unknown Latanoprost 0.005% [Xalatan 0.005%] 1 drop OP QHS 10/30/18 01/09/19 Unknown Metoprolol 25 mg PO DAILY 10/30/18 01/09/19 Unknown AtorvaSTATin [Lipitor] 20 mg PO DAILY 01/09/19 01/09/19 Unknown Famotidine [Pepcid] 40 mg PO DAILY 01/09/19 01/09/19 Unknown Furosemide [Lasix TAB] 20 mg PO DAILY 01/09/19 01/09/19 Unknown Insulin Aspart [Novolog] 5 unit SQ TID 01/09/19 01/09/19 Unknown Pantoprazole [Protonix TAB] 40 mg PO DAILY 01/09/19 01/09/19 Unknown Allergies Allergy/AdvReac Type Severity Reaction Status Date / Time No Known Allergies Allergy Verified 10/03/18 08:49 ED Review of Systems ROS: Stated complaint: DEHYDRATION Other details as noted in HPI Constitutional: malaise. denies: chills, fever Eyes: denies: eye pain, eye discharge, vision change ENT: denies: ear pain, throat pain Respiratory: denies: cough, shortness of breath, wheezing Cardiovascular: denies: chest pain, palpitations Endocrine: no symptoms reported, increased thirst Gastrointestinal: nausea, vomiting, diarrhea. denies: abdominal pain, constipation, hematemesis, melena, hematochezia Genitourinary: denies: urgency, dysuria, discharge Musculoskeletal: denies: back pain, joint swelling, arthralgia Skin: denies: rash, lesions Neurological: denies: headache, weakness, paresthesias Psychiatric: denies: anxiety, depression Hematological/Lymphatic: denies: easy bleeding, easy bruising ED Past Medical Hx - Past Medical History Previous Medical History?: Yes Hx Hypertension: Yes Hx Congestive Heart Failure: Yes Hx Diabetes: Yes Hx GERD: Yes Hx Renal Disease: Yes (no dialysis at this time) Hx Arthritis: Yes Additional medical history: High cholesterol - Surgical History Past Surgical History?: Yes Additional Surgical History: Chase. lumpectomy - Family History Family history: no significant - Social History Smoking Status: Never Smoker Substance Use Type: None - Medications Home Medications: Home Medications Medication Instructions Recorded Confirmed Last Taken Type Aspirin [Aspirin BABY CHEW TAB] 81 mg PO DAILY 10/10/14 01/09/19 10/10/14 History Insulin Glargine [Lantus VIAL] 45 unit SUB-Q QHS 10/10/14 01/09/19 10/09/14 History Amlodipine Besylate 10 mg PO DAILY 02/28/18 01/09/19 Unknown History Gabapentin [Neurontin] 300 mg PO DAILY 10/30/18 01/09/19 Unknown History Latanoprost 0.005% [Xalatan 0.005%] 1 drop OP QHS 10/30/18 01/09/19 Unknown History Metoprolol 25 mg PO DAILY 10/30/18 01/09/19 Unknown History AtorvaSTATin [Lipitor] 20 mg PO DAILY 01/09/19 01/09/19 Unknown History Famotidine [Pepcid] 40 mg PO DAILY 01/09/19 01/09/19 Unknown History Furosemide [Lasix TAB] 20 mg PO DAILY 01/09/19 01/09/19 Unknown History Insulin Aspart [Novolog] 5 unit SQ TID 01/09/19 01/09/19 Unknown History Pantoprazole [Protonix TAB] 40 mg PO DAILY 01/09/19 01/09/19 Unknown History ED Physical Exam - General Limitations: No Limitations General appearance: alert, in no apparent distress - Head Head exam: Present: atraumatic, normocephalic - Eye Eye exam: Present: normal appearance, PERRL Pupils: Present: normal accommodation - ENT ENT exam: Present: mucous membranes dry - Neck Neck exam: Present: normal inspection - Respiratory Respiratory exam: Present: normal lung sounds bilaterally. Absent: respiratory distress, wheezes, rales - Cardiovascular Cardiovascular Exam: Present: regular rate, normal rhythm. Absent: systolic murmur, diastolic murmur, rubs, gallop - GI/Abdominal GI/Abdominal exam: Present: soft, normal bowel sounds. Absent: distended, tenderness, guarding - Rectal Rectal exam: Present: deferred - Extremities Exam Extremities exam: Present: normal inspection - Back Exam Back exam: Present: normal inspection - Neurological Exam Neurological exam: Present: alert, oriented X3 - Psychiatric Psychiatric exam: Present: normal affect, normal mood - Skin Skin exam: Present: warm, dry, intact, normal color. Absent: rash ED Course Vital Signs 01/09/19 01/09/19 15:21 19:30 Temperature 97.6 F 98.1 F Pulse Rate 81 64 Respiratory 16 17 Rate Blood Pressure 156/59 Blood Pressure 147/62 [Right] O2 Sat by Pulse 97 99 Oximetry - Reevaluation(s) Reevaluation #1: Discussed all results with patient. I discussed plan of care patient. Patient agrees with plan of care and admission. Patient will be admitted to the [facility] service. 01/09/19 19:00 - Consultations Consultation #1: Hospitalist consult for admission. Hospitalist to admit patient. 01/09/19 19:00 ED Medical Decision Making - Lab Data Result diagrams: 01/09/19 15:34 01/09/19 15:34 - Medical Decision Making Patient is a 78-year-old female that presents emergency room with complaints of nausea vomiting, diarrhea, fluctuating sugar and dry mouth and dehydration. Patient found to have a metabolic acidosis and dehydration. Patient found to have hyponatremia. Other findings consistent with ckd. Patient has a significant past medical history for CHF and diabetes, ckd. Due to the fact the patient has CHF small amount of fluid bolus given. Patient was given a 500 mL bolus and admitted to the hospitalist service. - Differential Diagnosis dehydration. Nausea vomiting diarrhea. DKA. Critical Care Time: Yes Critical care attestation.: If time is entered above; I have spent that time in minutes in the direct care of this critically ill patient, excluding procedure time. Critical Care Time: 35 minutes ED Disposition Clinical Impression: Metabolic acidosis, Hyponatremia, Dehydration, Hyperglycemia Nausea & vomiting Qualifiers: Vomiting type: unspecified Vomiting Intractability: intractable Qualified Code(s): R11.2 - Nausea with vomiting, unspecified Diarrhea Qualifiers: Diarrhea type: unspecified type Qualified Code(s): R19.7 - Diarrhea, unspecified CKD (chronic kidney disease) Qualifiers: Chronic kidney disease stage: unspecified stage Qualified Code(s): N18.9 - Chronic kidney disease, unspecified Disposition: DC-09 OP ADMIT IP TO THIS HOSP Is pt being admited?: Yes Does the pt Need Aspirin: No Condition: Critical Time of Disposition: 18:52
[2019-01-09 16:20] LABS: Basophils % (Auto) 0.1 % (0.0-1.8); Eosinophils % (Auto) 0.4 % (0.0-4.3); Hematocrit 34.8 % (30.3-42.9); Hemoglobin 11.1 gm/dl (10.1-14.3); Lymphocytes # (Auto) 0.6 K/mm3 (1.2-5.4); Lymphocytes % (Auto) 14.5 % (13.4-35.0); Mean Corpuscular HGB Conc 32 % (30-34); Mean Corpuscular Volume 71 fl (79-97); Monocytes # (Auto) 0.5 K/mm3 (0.0-0.8); Monocytes % (Auto) 13.3 % (0.0-7.3); Platelet Count 216 K/mm3 (140-440); Red Blood Count 4.91 M/mm3 (3.65-5.03); Red Cell Distribution Width 15.3 % (13.2-15.2)
[2019-01-09 16:46] LABS: Albumin 4.4 g/dL (3.9-5); Calcium 9.4 mg/dL (8.4-10.2)
[2019-01-09 18:46] LABS: Bilirubin,Urine NEG (Negative); Blood,Urine NEG (Negative); Color,Urine Straw (Yellow); Mucus,Urine FEW /HPF; Protein,Urine <15 mg/dL mg/dL (Negative); RBC,Urine < 1.0 /HPF (0.0-6.0); Urobilinogen,Urine < 2.0 mg/dL (<2.0)
[2019-01-09] MEDS ORDERED: SODIUM CHLORIDE 0.9% 500 ML 500 ML IV ONE (18:50)
[2019-01-09] MEDS ORDERED: METOCLOPRAMIDE 10 MG/2 ML INJ IV PRN (20:04)
[2019-01-09] MEDS ORDERED: ACETAMINOPHEN 325 MG TAB PO PRN (20:04)
[2019-01-09] MEDS ORDERED: ONDANSETRON 4 MG/2 ML INJ IV PRN (20:04)
[2019-01-09] MEDS ORDERED: DEXTROSE 50% IN WATER (25GM) 50 ML SYRINGE IV PRN (20:04)
--- NOTE | 2019-01-09 20:56 | History and Physical Report ---
History of Present Illness Date of examination: 01/09/19 Date of admission: 01/09/2019 Chief complaint: nausea, vomiting, and diarrhea History of present illness: 78-year-old -[place] female with history of diabetes with neuropathy, hypertension, CHF, HLD, CKD who presents to [facility] ED with complaints of nausea vomiting and diarrhea for the past 2 days. States she's been unable to keep anything down with the past 2 days due to nausea and vomiting. She also complains of diarrhea the past 2 days which has since resolved. Additionally she complains of fluctuating blood sugar, and increased thirst for the past 2 weeks. She describes it as feeling "dry" and needing to drink more. She admits to decrease appetite and poor oral intake over the past few days. She denies polyuria and polyphagia. Dr. 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 Denies: Fever, chills, headache, chest pain, shortness of breath, PND, or recent sick contacts Past History Past Medical History: diabetes, GERD, heart failure, hypertension, hyperlipidemia, renal failure Past Surgical History: Other (Chase. lumpectomy) Social history: Lives alone. denies: smoking Family history: no significant family history Medications and Allergies Allergies Allergy/AdvReac Type Severity Reaction Status Date / Time No Known Allergies Allergy Verified 10/03/18 08:49 Home Medications Medication Instructions Recorded Confirmed Last Taken Type Aspirin [Aspirin BABY CHEW TAB] 81 mg PO DAILY 10/10/14 01/09/19 10/10/14 History Insulin Glargine [Lantus VIAL] 45 unit SUB-Q QHS 10/10/14 01/09/19 10/09/14 History Amlodipine Besylate 10 mg PO DAILY 02/28/18 01/09/19 Unknown History Gabapentin [Neurontin] 300 mg PO DAILY 10/30/18 01/09/19 Unknown History Latanoprost 0.005% [Xalatan 0.005%] 1 drop OP QHS 10/30/18 01/09/19 Unknown History Metoprolol 25 mg PO DAILY 10/30/18 01/09/19 Unknown History AtorvaSTATin [Lipitor] 20 mg PO DAILY 01/09/19 01/09/19 Unknown History Famotidine [Pepcid] 40 mg PO DAILY 01/09/19 01/09/19 Unknown History Furosemide [Lasix TAB] 20 mg PO DAILY 01/09/19 01/09/19 Unknown History Insulin Aspart [Novolog] 5 unit SQ TID 01/09/19 01/09/19 Unknown History Pantoprazole [Protonix TAB] 40 mg PO DAILY 01/09/19 01/09/19 Unknown History Active Meds: Active Medications Acetaminophen (Tylenol) 650 mg PO Q4H PRN PRN Reason: Pain MILD(1-3)/Fever >100.5/COOPER Aspirin (Baby Aspirin) 81 mg PO DAILY [facility] Atorvastatin Calcium (Lipitor) 20 mg PO DAILY [facility] Dextrose (D50w (25gm) Syringe) 50 ml IV PRN PRN PRN Reason: Hypoglycemia Docusate Sodium (Colace) 100 mg PO BID [facility] Gabapentin (Neurontin) 300 mg PO DAILY [facility] Heparin Sodium (Porcine) (Heparin) 5,000 unit SUB-Q Q12HR [facility] Sodium Chloride (Nacl 0.9% 1000 Ml) 1,000 mls @ 42 mls/hr IV DIRECT [facility] Insulin Glargine (Lantus) 45 units SUB-Q QHS [facility] Insulin Human Lispro (Humalog) 0 unit SUB-Q ACHS [facility]; Protocol Latanoprost (Latanoprost 0.005%) drops OD QHS [facility] Metoclopramide HCl (Reglan) 10 mg IV Q6H PRN PRN Reason: Nausea And Vomiting Miscellaneous Medication (Amlodipine Besylate) 10 mg PO DAILY [facility] Miscellaneous Medication (Famotidine [Pepcid]) 40 mg PO DAILY [facility] Miscellaneous Medication (Insulin Aspart) 5 unit SQ TID [facility] Miscellaneous Medication (Metoprolol) 25 mg PO DAILY [facility] Ondansetron HCl (Zofran) 4 mg IV Q6H PRN PRN Reason: Nausea And Vomiting Pantoprazole Sodium (Protonix) 40 mg PO DAILY [facility] Sodium Chloride (Sodium Chloride Flush Syringe 10 Ml) 10 ml IV BID [facility] Sodium Chloride (Sodium Chloride Flush Syringe 10 Ml) 10 ml IV PRN PRN PRN Reason: LINE FLUSH Review of Systems All systems: negative Gastrointestinal: nausea, vomiting, diarrhea Endocrine: high blood sugars (fluctuating), low blood sugars Exam - Physical Exam Narrative exam: Physical exam General appearance: Present: No acute distress, alert and oriented 3, well developed, pleasant, adult -[place] male - EENT Eyes: Present: PERRL, EOM intact, ENT: hearing intact, normal dentition - Neck Neck: Present: supple, normal ROM - Respiratory Respiratory effort: Non-labored Respiratory: CTA - Cardiovascular Heart rate: 81 (bpm) Rhythm: SR Heart Sounds: Present: S1, S2 - Extremities Extremities: no ischemia, pulses intact, - Peripheral Assessment Peripheral Pulses: within normal limits - Abdominal General gastrointestinal: Soft, non-tender, normal bowel sounds - Integumentary Integumentary: Present: warm, dry, - Musculoskeletal Musculoskeletal: Able to move all extremities, normal gait -Neurological Neurological: CN II-XII grossly intact - Psychiatric Psychiatric: cooperative - Constitutional Vitals: Temp Pulse Resp BP Pulse Ox 98.1 F 64 17 147/62 99 01/09/19 19:30 01/09/19 19:30 01/09/19 19:30 01/09/19 19:30 01/09/19 19:30 Results - Labs CBC & Chem 7: 01/09/19 15:34 01/09/19 15:34 Labs: Laboratory Last Values WBC 4.1 K/mm3 (4.5-11.0) L 01/09/19 15:34 RBC 4.91 M/mm3 (3.65-5.03) 01/09/19 15:34 Hgb 11.1 gm/dl (10.1-14.3) 01/09/19 15:34 Hct 34.8 % (30.3-42.9) 01/09/19 15:34 MCV 71 fl (79-97) L 01/09/19 15:34 MCH 23 pg (28-32) L 01/09/19 15:34 MCHC 32 % (30-34) 01/09/19 15:34 RDW 15.3 % (13.2-15.2) H 01/09/19 15:34 Plt Count 216 K/mm3 (140-440) 01/09/19 15:34 Lymph % (Auto) 14.5 % (13.4-35.0) 01/09/19 15:34 [place] % (Auto) 13.3 % (0.0-7.3) H 01/09/19 15:34 Eos % (Auto) 0.4 % (0.0-4.3) 01/09/19 15:34 Baso % (Auto) 0.1 % (0.0-1.8) 01/09/19 15:34 Lymph # 0.6 K/mm3 (1.2-5.4) L 01/09/19 15:34 [place] # 0.5 K/mm3 (0.0-0.8) 01/09/19 15:34 Eos # 0.0 K/mm3 (0.0-0.4) 01/09/19 15:34 Baso # 0.0 K/mm3 (0.0-0.1) 01/09/19 15:34 Seg Neutrophils % 71.7 % (40.0-70.0) H 01/09/19 15:34 Seg Neutrophils # 2.9 K/mm3 (1.8-7.7) 01/09/19 15:34 Sodium 126 mmol/L (137-145) L 01/09/19 15:34 Potassium 5.0 mmol/L (3.6-5.0) 01/09/19 15:34 Chloride 86.5 mmol/L (98-107) L 01/09/19 15:34 Carbon Dioxide 17 mmol/L (22-30) L 01/09/19 15:34 Anion Gap 28 mmol/L 01/09/19 15:34 BUN 60 mg/dL (7-17) H 01/09/19 15:34 Creatinine 3.3 mg/dL (0.7-1.2) H 01/09/19 15:34 Estimated GFR 16 ml/min 01/09/19 15:34 BUN/Creatinine Ratio 18 % 01/09/19 15:34 Glucose 215 mg/dL (65-100) H 01/09/19 15:34 POC Glucose 205 (70-105) H 01/09/19 16:33 Calcium 9.4 mg/dL (8.4-10.2) 01/09/19 15:34 Total Bilirubin 0.30 mg/dL (0.1-1.2) 01/09/19 15:34 AST 17 units/L (5-40) 01/09/19 15:34 ALT 13 units/L (7-56) 01/09/19 15:34 Alkaline Phosphatase 100 units/L (35-129) 01/09/19 15:34 Total Protein 8.3 g/dL (6.3-8.2) H 01/09/19 15:34 Albumin 4.4 g/dL (3.9-5) 01/09/19 15:34 Albumin/Globulin Ratio 1.1 % 01/09/19 15:34 Urine Color Straw (Yellow) 01/09/19 Unknown Urine Turbidity Clear (Clear) 01/09/19 Unknown Urine pH 5.0 (5.0-7.0) 01/09/19 Unknown Ur Specific [place] 1.006 (1.003-1.030) 01/09/19 Unknown Urine Protein <15 mg/dl mg/dL (Negative) 01/09/19 Unknown Urine Glucose (UA) 50 mg/dL (Negative) 01/09/19 Unknown Urine Ketones Neg mg/dL (Negative) 01/09/19 Unknown Urine Blood Neg (Negative) 01/09/19 Unknown Urine Nitrite Neg (Negative) 01/09/19 Unknown Urine Bilirubin Neg (Negative) 01/09/19 Unknown Urine Urobilinogen < 2.0 mg/dL (<2.0) 01/09/19 Unknown Ur Leukocyte Esterase Neg (Negative) 01/09/19 Unknown Urine WBC (Auto) 1.0 /HPF (0.0-6.0) 01/09/19 Unknown Urine RBC (Auto) < 1.0 /HPF (0.0-6.0) 01/09/19 Unknown U Epithel Cells (Auto) 1.0 /HPF (0-13.0) 01/09/19 Unknown Urine Mucus Few /HPF 01/09/19 Unknown Assessment and Plan Assessment and plan: 78-year-old -[place] female with history of diabetes with neuropathy, hypertension, CHF, HLD, CKD who presents to [facility] ED with complaints of fluctuating blood sugars for the past 2 weeks and nausea vomiting and diarrhea for the past 2 days. KD -Superimpose CKD -Cr on admission 3.3 -Gentle Hydrate with IVF -Avoid nephrotoxin agents -Renal dose all meds -Nephrology consulted Hyponatremia -Likely secondary to dehydration -Na on admission 126 -Slowly correct Na with IVF -Continue to monitor replete prn Dehydration -Secondary to n/v/d x2 days -Start on clear diet and advance as tolerated -Hydrate with IVF -Continue Supportive Care DM2 -With neuropathy; continue gabapentin -With hyperglycemia -BG on admission 215 -POC BG monitoring -HgbA1c pending -Scheduled insulin coverage -SSI coverage prn HTN -Monitor BP -Resume home antihypertensive meds GERD -on PPI HLD -Continue statin CHF -Continue HF meds DVT PPX -on Heparin Advance Directives: No VTE prophylaxis?: Chemical Plan of care discussed with patient/family: Yes
[2019-01-09] MEDS ORDERED: SODIUM CHLORIDE 0.9% 1000 ML 1,000 ML IV SCH (21:00)
[2019-01-09] MEDS ORDERED: SODIUM CHLORIDE 0.45% 1000 ML 1,000 ML IV SCH (21:00)
[2019-01-09] MEDS: PANTOPRAZOLE 40 MG TAB PO SCH (21:20)
[2019-01-09] MEDS ORDERED: PANTOPRAZOLE 40 MG TAB PO ONE (21:22)
[2019-01-09] MEDS: INSULIN GLARGINE 100 UNITS/ML SUB-Q SCH (23:26)
[2019-01-09] MEDS: DOCUSATE SODIUM 100 MG CAP PO SCH (23:27)
[2019-01-09] MEDS: INSULIN LISPRO 100 UNIT/ML SUB-Q SCH (23:27)
[2019-01-09] MEDS: HEPARIN 5,000 UNIT/1 ML VIAL SUB-Q SCH (23:27)
[2019-01-10 04:57] LABS: Hematocrit 31.3 % (30.3-42.9); Mean Corpuscular HGB Conc 32 % (30-34); Mean Corpuscular Volume 71 fl (79-97); Platelet Count 201 K/mm3 (140-440); Red Blood Count 4.44 M/mm3 (3.65-5.03); Red Cell Distribution Width 15.1 % (13.2-15.2)
[2019-01-10 05:25] LABS: Calcium 8.7 mg/dL (8.4-10.2)
[2019-01-10 06:03] LABS: Uric Acid 10.3 mg/dL (3.5-7.6)
[2019-01-10 07:46] LABS: Basophils % (Manual) 0 % (0.0-1.8); Eosinophils % (Manual) 0 % (0.0-4.3); Total Cells Counted 100
[2019-01-10 07:47] LABS: Anisocytosis Few; Ovalocytes 1+; Platelet Estimate Consistent w Auto; Poikilocytosis 1+
[2019-01-10] MEDS ORDERED: INSULIN ASPART 5 UNIT SQ SCH (08:00)
[2019-01-10] MEDS: INSULIN LISPRO 100 UNIT/ML SUB-Q SCH ×7 (08:19→22:00)
[2019-01-10] MEDS ORDERED: NON-FORMULARY EACH (Famotidine [Pepcid] 40 MG) PO SCH (10:00)
[2019-01-10] MEDS ORDERED: NON-FORMULARY EACH (Metoprolol 25 MG) PO SCH (10:00)
[2019-01-10] MEDS ORDERED: NON-FORMULARY EACH (Amlodipine Besylate 10 MG) PO SCH (10:00)
[2019-01-10] MEDS: SODIUM CHLORIDE 0.9% 1000 ML 1,000 ML IV SCH (10:11)
[2019-01-10] MEDS: HEPARIN 5,000 UNIT/1 ML VIAL SUB-Q SCH ×2 (10:12→21:21)
[2019-01-10] MEDS: amLODIPine 10 MG TAB PO SCH (10:13)
[2019-01-10] MEDS: GABAPENTIN 300 MG CAP PO SCH (10:13)
[2019-01-10] MEDS: PANTOPRAZOLE 40 MG TAB PO SCH (10:13)
[2019-01-10] MEDS: DOCUSATE SODIUM 100 MG CAP PO SCH ×2 (10:14→21:21)
[2019-01-10] MEDS: ASPIRIN 81 MG TAB CHEW PO SCH (10:14)
--- NOTE | 2019-01-10 10:17 | Consultation ---
History of Present Illness - Reason for Consult Consult date: 01/10/19 acute renal failure, chronic renal failure, hyponatremia - History of Present Illness The patient is a 78 YO AAF who is well known to our service with history significant for DM type 2, Hypertension, HLD, GERD, peripheral neuropathy and CKD who presented to [facility] ED yesterday with complaints of generalized weaknes of 1-2 duration. Patient had nausea, vomiting and diarrhea that started on 01/06 and lasted for about a day. Her son was also sick in the same day. She admits to decreased appetite and poor oral intake over the past few days. She became very weak and came to the hospital for further evaluation. She denies abd pain, fever, rash, dysuria, hematuria, dizziness, syncope, cp or sob. Creatinine was 3.3, Sodium 126 and bicarb 17 on admission. Nephrology was consulted for further evaluation of KD. Past History Past Medical History: diabetes, GERD, heart failure, hypertension, hyperlipidemia, renal failure Past Surgical History: Other ([facility]ase. lumpectomy) Social history: Lives alone. denies: smoking Family history: no significant family history Medications and Allergies Allergies Allergy/AdvReac Type Severity Reaction Status Date / Time No Known Allergies Allergy Verified 10/03/18 08:49 Home Medications Medication Instructions Recorded Confirmed Last Taken Type Aspirin [Aspirin BABY CHEW TAB] 81 mg PO DAILY 10/10/14 01/09/19 10/10/14 History Insulin Glargine [Lantus VIAL] 45 unit SUB-Q QHS 10/10/14 01/09/19 10/09/14 History Amlodipine Besylate 10 mg PO DAILY 02/28/18 01/09/19 Unknown History Gabapentin [Neurontin] 300 mg PO DAILY 10/30/18 01/09/19 Unknown History Latanoprost 0.005% [Xalatan 0.005%] 1 drop OP QHS 10/30/18 01/09/19 Unknown History Metoprolol 25 mg PO DAILY 10/30/18 01/09/19 Unknown History AtorvaSTATin [Lipitor] 20 mg PO DAILY 01/09/19 01/09/19 Unknown History Famotidine [Pepcid] 40 mg PO DAILY 01/09/19 01/09/19 Unknown History Furosemide [Lasix TAB] 20 mg PO DAILY 01/09/19 01/09/19 Unknown History Insulin Aspart [Novolog] 5 unit SQ TID 01/09/19 01/09/19 Unknown History Pantoprazole [Protonix TAB] 40 mg PO DAILY 01/09/19 01/09/19 Unknown History Active Meds: Active Medications Acetaminophen (Tylenol) 650 mg PO Q4H PRN PRN Reason: Pain MILD(1-3)/Fever >100.5/[facility] Amlodipine Besylate (Norvasc) 10 mg PO DAILY [facility] Last Admin: 01/10/19 10:13 Dose: 10 mg Documented by: Aspirin (Baby Aspirin) 81 mg PO DAILY [facility] Last Admin: 01/10/19 10:14 Dose: 81 mg Documented by: Atorvastatin Calcium (Lipitor) 20 mg PO DAILY [facility] Last Admin: 01/10/19 10:14 Dose: 20 mg Documented by: Dextrose (D50w (25gm) Syringe) 50 ml IV PRN PRN PRN Reason: Hypoglycemia Docusate Sodium (Colace) 100 mg PO BID [facility] Last Admin: 01/10/19 10:14 Dose: 100 mg Documented by: Gabapentin (Neurontin) 300 mg PO DAILY [facility] Last Admin: 01/10/19 10:13 Dose: 300 mg Documented by: Heparin Sodium (Porcine) (Heparin) 5,000 unit SUB-Q Q12HR [facility] Last Admin: 01/10/19 10:12 Dose: 5,000 unit Documented by: Sodium Chloride (Nacl 0.9% 1000 Ml) 1,000 mls @ 50 mls/hr IV DIRECT [facility] Last Admin: 01/10/19 10:11 Dose: 50 mls/hr Documented by: Insulin Glargine (Lantus) 45 units SUB-Q QHS [facility] Last Admin: 01/09/19 23:26 Dose: 45 units Documented by: Insulin Human Lispro (Humalog) 0 unit SUB-Q ACHS [facility]; Protocol Last Admin: 01/10/19 08:19 Dose: Not Given Documented by: Insulin Human Lispro (Humalog) 5 unit SUB-Q TIDAC [facility] Last Admin: 01/10/19 08:22 Dose: Not Given Documented by: Latanoprost (Latanoprost 0.005%) 1 drops OD QHS [facility] Metoclopramide HCl (Reglan) 10 mg IV Q6H PRN PRN Reason: Nausea And Vomiting Metoprolol Tartrate (Lopressor) 25 mg PO DAILY [facility] Ondansetron HCl (Zofran) 4 mg IV Q6H PRN PRN Reason: Nausea And Vomiting Pantoprazole Sodium (Protonix) 40 mg PO DAILY [facility] Last Admin: 01/10/19 10:13 Dose: 40 mg Documented by: Sodium Chloride (Sodium Chloride Flush Syringe 10 Ml) 10 ml IV BID [facility] Last Admin: 01/09/19 23:28 Dose: 10 ml Documented by: Sodium Chloride (Sodium Chloride Flush Syringe 10 Ml) 10 ml IV PRN PRN PRN Reason: LINE FLUSH Review of Systems Constitutional: anorexia, fatigue, weakness, poor appetite, no weight loss, no weight gain, no fever, no chills Breasts: deferred Cardiovascular: high blood pressure, no chest pain, no orthopnea, no edema, no syncope, no lightheadedness, no shortness of breath Respiratory: no cough, no hemoptysis, no shortness of breath Gastrointestinal: nausea, vomiting, diarrhea, no abdominal pain, no melena, no hematochezia Genitourinary Female: no dysuria, no hematuria Rectal: no bleeding Integumentary: no wounds, no jaundice Neurological: weakness, no paralysis, no parathesias, no numbness, no seizures, no syncope, no convulsions, no aphasia, no change in speech, no confusion, no me sam loss Exam - Vital Signs Vital signs: Vital Signs Temp Pulse Resp BP Pulse Ox 97.6 F 81 16 156/59 97 01/09/19 15:21 01/09/19 15:21 01/09/19 15:21 01/09/19 15:21 01/09/19 15:21 - General Appearance General appearance: well-developed, well-nourished, appears stated age, other (no distress) Results - Lab Results 01/10/19 03:54 01/10/19 03:54 Most recent lab results Calcium 8.7 mg/dL (8.4-10.2) 01/10/19 03:54 Phosphorus 5.30 mg/dL (2.5-4.5) H 01/10/19 03:54 Magnesium 2.20 mg/dL (1.7-2.3) 01/10/19 03:54 - Image Kidney/bladder ultrasound: other Assessment and Plan 1. 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 Continue IV fluids. Renal function is improving. Monitor renal function. Avoid nephrotoxic agents. Meds dosage based on GFR. 2. FEN: Hyponatremia, 2/2 volume depletion. Sodium level is gradually improving. Metabolic acidosis, improving. Monitor lytes. 3. Acute gastroenteritis: Improved 4. DM. 5. Hypertension.
[2019-01-10] MEDS: METOPROLOL TARTRATE 25 MG TAB PO SCH (10:19)
--- NOTE | 2019-01-10 11:51 | Progress Note ---
Assessment and Plan Assessment and plan: Acute on chronic kidney disease. Due to vasomotor nephropathy Improving on iv fluids Nephrology following Acute gastroenteritis with nausea, vomiting, diarrhea improved Cont iv fluids Hyponatremia Na 130 today Diabetes mellitus type 2. Fingerstick q ac and hs Insulin hyperlipidemia Statin Full code status History Interval history: nausea, vomiting, diarrhea Hospitalist Physical - Physical exam Narrative exam: Gen: Not in acute distress, lying in bed, HEENT: Normocephalic, atraumatic Neck: supple, no JVD Heart: S1 and S2 reg, no murmurs, rubs or gallop Lungs: Clear to auscultation, no rhonchi, no wheeze Abd: soft, non tender, non distended, normal BS, Ext: No edema, no clubbing, no cyanosis Neuro: Awake, alert, oriented X 3, no focal neurological signs - Constitutional Vitals: Temp Pulse Resp BP Pulse Ox 97.9 F 65 18 123/54 99 01/10/19 07:52 01/10/19 08:00 01/10/19 07:52 01/10/19 07:52 01/10/19 07:52 Results - Labs CBC & Chem 7: 01/10/19 03:54 01/10/19 03:54 Labs: Laboratory Last Values WBC 3.1 K/mm3 (4.5-11.0) L 01/10/19 03:54 RBC 4.44 M/mm3 (3.65-5.03) 01/10/19 03:54 Hgb 10.0 gm/dl (10.1-14.3) L 01/10/19 03:54 Hct 31.3 % (30.3-42.9) 01/10/19 03:54 MCV 71 fl (79-97) L 01/10/19 03:54 MCH 23 pg (28-32) L 01/10/19 03:54 MCHC 32 % (30-34) 01/10/19 03:54 RDW 15.1 % (13.2-15.2) 01/10/19 03:54 Plt Count 201 K/mm3 (140-440) 01/10/19 03:54 Lymph % (Auto) 14.5 % (13.4-35.0) 01/09/19 15:34 [place] % (Auto) Finance Lead 01/10/19 03:54 Eos % (Auto) 0.4 % (0.0-4.3) 01/09/19 15:34 Baso % (Auto) 0.1 % (0.0-1.8) 01/09/19 15:34 Lymph # 0.6 K/mm3 (1.2-5.4) L 01/09/19 15:34 [place] # 0.5 K/mm3 (0.0-0.8) 01/09/19 15:34 Eos # 0.0 K/mm3 (0.0-0.4) 01/09/19 15:34 Baso # 0.0 K/mm3 (0.0-0.1) 01/09/19 15:34 Add Manual Diff Complete 01/10/19 03:54 Total Counted 100 01/10/19 03:54 Seg Neutrophils % 71.7 % (40.0-70.0) H 01/09/19 15:34 Seg Neuts % (Manual) 59.0 % (40.0-70.0) 01/10/19 03:54 Band Neutrophils % 0 % 01/10/19 03:54 Lymphocytes % (Manual) 30.0 % (13.4-35.0) 01/10/19 03:54 Reactive Lymphs % (Man) 0 % 01/10/19 03:54 Monocytes % (Manual) 11.0 % (0.0-7.3) H 01/10/19 03:54 Eosinophils % (Manual) 0 % (0.0-4.3) 01/10/19 03:54 Basophils % (Manual) 0 % (0.0-1.8) 01/10/19 03:54 Metamyelocytes % 0 % 01/10/19 03:54 Myelocytes % 0 % 01/10/19 03:54 Promyelocytes % 0 % 01/10/19 03:54 Blast Cells % 0 % 01/10/19 03:54 Nucleated RBC % Not Reportable 01/10/19 03:54 Seg Neutrophils # 2.9 K/mm3 (1.8-7.7) 01/09/19 15:34 Seg Neutrophils # Man 1.8 K/mm3 (1.8-7.7) 01/10/19 03:54 Band Neutrophils # 0.0 K/mm3 01/10/19 03:54 Lymphocytes # (Manual) 0.9 K/mm3 (1.2-5.4) L 01/10/19 03:54 Abs React Lymphs (Man) 0.0 K/mm3 01/10/19 03:54 Monocytes # (Manual) 0.3 K/mm3 (0.0-0.8) 01/10/19 03:54 Eosinophils # (Manual) 0.0 K/mm3 (0.0-0.4) 01/10/19 03:54 Basophils # (Manual) 0.0 K/mm3 (0.0-0.1) 01/10/19 03:54 Metamyelocytes # 0.0 K/mm3 01/10/19 03:54 Myelocytes # 0.0 K/mm3 01/10/19 03:54 Promyelocytes # 0.0 K/mm3 01/10/19 03:54 Blast Cells # 0.0 K/mm3 01/10/19 03:54 WBC Morphology Not Reportable 01/10/19 03:54 Hypersegmented Neuts Not Reportable 01/10/19 03:54 Hyposegmented Neuts Not Reportable 01/10/19 03:54 Hypogranular Neuts Not Reportable 01/10/19 03:54 Smudge Cells Not Reportable 01/10/19 03:54 Toxic Granulation Not Reportable 01/10/19 03:54 Toxic Vacuolation Not Reportable 01/10/19 03:54 Dohle Bodies Not Reportable 01/10/19 03:54 Pelger-Huet Anomaly Not Reportable 01/10/19 03:54 Janett Rods Not Reportable 01/10/19 03:54 Platelet Estimate Consistent w auto 01/10/19 03:54 Clumped Platelets Not Reportable 01/10/19 03:54 Plt Clumps, EDTA Not Reportable 01/10/19 03:54 Large Platelets Not Reportable 01/10/19 03:54 Giant Platelets Not Reportable 01/10/19 03:54 Platelet Satelliting Not Reportable 01/10/19 03:54 Plt Morphology Comment Not Reportable 01/10/19 03:54 RBC Morphology Not Reportable 01/10/19 03:54 Dimorphic RBCs Not Reportable 01/10/19 03:54 Polychromasia Not Reportable 01/10/19 03:54 Hypochromasia Not Reportable 01/10/19 03:54 Poikilocytosis 1+ 01/10/19 03:54 Anisocytosis Few 01/10/19 03:54 Microcytosis Not Reportable 01/10/19 03:54 Macrocytosis Not Reportable 01/10/19 03:54 Spherocytes Not Reportable 01/10/19 03:54 Pappenheimer Bodies Not Reportable 01/10/19 03:54 Sickle Cells Not Reportable 01/10/19 03:54 Target Cells Not Reportable 01/10/19 03:54 Tear Drop Cells Not Reportable 01/10/19 03:54 Ovalocytes 1+ 01/10/19 03:54 Helmet Cells Not Reportable 01/10/19 03:54 [place] Bodies Not Reportable 01/10/19 03:54 [place] Rings Not Reportable 01/10/19 03:54 [place] Cells Not Reportable 01/10/19 03:54 Bite Cells Not Reportable 01/10/19 03:54 Crenated Cell Not Reportable 01/10/19 03:54 Elliptocytes Not Reportable 01/10/19 03:54 Acanthocytes (Spur) Not Reportable 01/10/19 03:54 Rouleaux Not Reportable 01/10/19 03:54 Hemoglobin C Crystals Not Reportable 01/10/19 03:54 Schistocytes Not Reportable 01/10/19 03:54 Malaria parasites Not Reportable 01/10/19 03:54 Chris Bodies Not Reportable 01/10/19 03:54 Hem Pathologist Commnt No 01/10/19 03:54 Sodium 130 mmol/L (137-145) L 01/10/19 03:54 Potassium 4.9 mmol/L (3.6-5.0) 01/10/19 03:54 Chloride 95.5 mmol/L (98-107) L 01/10/19 03:54 Carbon Dioxide 22 mmol/L (22-30) 01/10/19 03:54 Anion Gap 17 mmol/L 01/10/19 03:54 BUN 52 mg/dL (7-17) H 01/10/19 03:54 Creatinine 2.9 mg/dL (0.7-1.2) H 01/10/19 03:54 Estimated GFR 19 ml/min 01/10/19 03:54 BUN/Creatinine Ratio 18 % 01/10/19 03:54 Glucose 74 mg/dL (65-100) 01/10/19 03:54 POC Glucose 182 (70-105) H 01/10/19 08:01 Hemoglobin A1c 8.1 % (4-6) H 01/09/19 15:34 Osmolality 287 Mosm/kg 01/10/19 03:54 Uric Acid 10.3 mg/dL (3.5-7.6) H 01/10/19 03:54 Calcium 8.7 mg/dL (8.4-10.2) 01/10/19 03:54 Phosphorus 5.30 mg/dL (2.5-4.5) H 01/10/19 03:54 Magnesium 2.20 mg/dL (1.7-2.3) 01/10/19 03:54 Total Bilirubin 0.30 mg/dL (0.1-1.2) 01/09/19 15:34 AST 17 units/L (5-40) 01/09/19 15:34 ALT 13 units/L (7-56) 01/09/19 15:34 Alkaline Phosphatase 100 units/L (35-129) 01/09/19 15:34 Total Protein 8.3 g/dL (6.3-8.2) H 01/09/19 15:34 Albumin 4.4 g/dL (3.9-5) 01/09/19 15:34 Albumin/Globulin Ratio 1.1 % 01/09/19 15:34 Urine Color Straw (Yellow) 01/09/19 Unknown Urine Turbidity Clear (Clear) 01/09/19 Unknown Urine pH 5.0 (5.0-7.0) 01/09/19 Unknown Ur Specific [place] 1.006 (1.003-1.030) 01/09/19 Unknown Urine Protein <15 mg/dl mg/dL (Negative) 01/09/19 Unknown Urine Glucose (UA) 50 mg/dL (Negative) 01/09/19 Unknown Urine Ketones Neg mg/dL (Negative) 01/09/19 Unknown Urine Blood Neg (Negative) 01/09/19 Unknown Urine Nitrite Neg (Negative) 01/09/19 Unknown Urine Bilirubin Neg (Negative) 01/09/19 Unknown Urine Urobilinogen < 2.0 mg/dL (<2.0) 01/09/19 Unknown Ur Leukocyte Esterase Neg (Negative) 01/09/19 Unknown Urine WBC (Auto) 1.0 /HPF (0.0-6.0) 01/09/19 Unknown Urine RBC (Auto) < 1.0 /HPF (0.0-6.0) 01/09/19 Unknown U Epithel Cells (Auto) 1.0 /HPF (0-13.0) 01/09/19 Unknown Urine Mucus Few /HPF 01/09/19 Unknown Active Medications - Current Medications Current Medications: Generic Name Dose Route Start Last Admin Trade Name Freq PRN Reason Stop Dose Admin Acetaminophen 650 mg 01/09/19 20:04 Tylenol PO Q4H PRN Pain MILD(1-3)/Fever >100.5/COOPER Amlodipine Besylate 10 mg 01/10/19 10:00 01/10/19 10:13 Norvasc PO 10 mg DAILY AMOR Administration Aspirin 81 mg 01/10/19 10:00 01/10/19 10:14 Baby Aspirin PO 81 mg DAILY AMOR Administration Atorvastatin Calcium 20 mg 01/10/19 10:00 01/10/19 10:14 Lipitor PO 20 mg DAILY AMOR Administration Dextrose 50 ml 01/09/19 20:04 D50w (25gm) Syringe IV PRN PRN Hypoglycemia Docusate Sodium 100 mg 01/09/19 22:00 01/10/19 10:14 Colace PO 100 mg BID AMOR Administration Gabapentin 300 mg 01/10/19 10:00 01/10/19 10:13 Neurontin PO 300 mg DAILY AMOR Administration Heparin Sodium (Porcine) 5,000 unit 01/09/19 22:00 01/10/19 10:12 Heparin SUB-Q 5,000 unit Q12HR AMOR Administration Sodium Chloride 1,000 mls @ 50 mls/hr 01/10/19 09:30 01/10/19 10:11 Nacl 0.9% 1000 Ml IV 50 mls/hr DIRECT MAOR Administration Insulin Glargine 45 units 01/09/19 22:00 01/09/19 23:26 Lantus SUB-Q 45 units QHS AMOR Administration Insulin Human Lispro 0 unit 01/09/19 22:00 01/10/19 08:19 Humalog SUB-Q Not Given ACHS [facility] Protocol Insulin Human Lispro 5 unit 01/10/19 07:30 01/10/19 08:22 Humalog SUB-Q Not Given TIDAC AMOR Latanoprost 1 drops 01/09/19 22:00 Latanoprost 0.005% OD QHS AMOR Metoclopramide HCl 10 mg 01/09/19 20:04 Reglan IV Q6H PRN Nausea And Vomiting Metoprolol Tartrate 25 mg 01/10/19 10:00 01/10/19 10:19 Lopressor PO 25 mg DAILY AMOR Administration Ondansetron HCl 4 mg 01/09/19 20:04 Zofran IV Q6H PRN Nausea And Vomiting Pantoprazole Sodium 40 mg 01/09/19 21:00 01/10/19 10:13 Protonix PO 40 mg DAILY AMOR Administration Sodium Chloride 10 ml 01/09/19 22:00 01/09/19 23:28 Sodium Chloride Flush Syringe 10 Ml IV 10 ml BID AMOR Administration Sodium Chloride 10 ml 01/09/19 20:04 Sodium Chloride Flush Syringe 10 Ml IV PRN PRN LINE FLUSH Nutrition/Malnutrition Assess - Dietary Evaluation Nutrition/Malnutrition Findings: Nutrition Notes Start: 01/10/19 10:03 Freq: Status: Active Protocol: Document 01/10/19 10:04 RS (Rec: 01/10/19 11:24 RS [id number]) Co-Sign 01/10/19 10:04 LM Nutrition Notes 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 Pt has a Chano score of 22 and reports no sores or pain laying down/ walking. Pt reports no N/V/D today and fair appetite. Observed <10% of breakfast tray consumed. 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 Briefly disucssed DM management, A1c status, and fluctuating BGL with pt. Pt reports having DM for 36 years. Burn Absent Trauma Absent GI Symptoms None Food Allergy No Current % PO Poor (25-49%) Minimum of two criteria No physical signs of malnutrition #1 Nutrition Diagnosis Inadequate oral intake Etiology poor appetite secondary to chronic illness As Evidenced by Signs and Symptoms <10% of breakfast tray consumed Is patient on ventilator? No Is Patient Ambulatory and/or Out of Bed Yes REE-([facility]-ambulatory/OOB) [ [id number] [id number]] Calculation Used for Recommendations [facility] Additional Notes PRO Needs: 0.8-1.2g/kg (63-95g/day) Fluid needs 1.5-1.9L/day or per MD Nutrition Intervention Change Diet Order: Continue diet Add Supplement/Snack (indicate name/kcal Ensure Clear mixed flor daily /protein ) Provides kCal: 240 Provides Protein (gm) 8 Goal #1 meet 75% of kcal/PRO needs via PO+ONS intake Goal #2 diet advancement Anticipated Discharge Needs: Unable to determine at this time Follow-Up By: 01/14/19 Additional Comments F/U diet advancement, PO intake, ONS tolerance
[2019-01-10 14:53] LABS: Osmolality,Urine 277 Mosm/kg
[2019-01-10] MEDS: INSULIN GLARGINE 100 UNITS/ML SUB-Q SCH (22:01)
[2019-01-10] MEDS: LATANOPROST 0.005% OPHTH SOLN 2.5 ML OD SCH (22:02)
[2019-01-11] MEDS: SODIUM CHLORIDE 0.9% 1000 ML 1,000 ML IV SCH ×2 (06:02→23:20)
[2019-01-11] MEDS: INSULIN LISPRO 100 UNIT/ML SUB-Q SCH ×7 (08:19→23:16)
[2019-01-11] MEDS: GABAPENTIN 300 MG CAP PO SCH (09:35)
[2019-01-11] MEDS: SODIUM BICARBONATE 650 MG TAB PO SCH ×3 (09:35→23:15)
[2019-01-11] MEDS: ASPIRIN 81 MG TAB CHEW PO SCH (09:35)
[2019-01-11] MEDS: PANTOPRAZOLE 40 MG TAB PO SCH (09:35)
[2019-01-11] MEDS: METOPROLOL TARTRATE 25 MG TAB PO SCH (09:36)
[2019-01-11] MEDS: DOCUSATE SODIUM 100 MG CAP PO SCH ×2 (09:36→23:15)
[2019-01-11] MEDS: amLODIPine 10 MG TAB PO SCH (09:36)
[2019-01-11] MEDS: HEPARIN 5,000 UNIT/1 ML VIAL SUB-Q SCH ×2 (09:38→23:15)
--- NOTE | 2019-01-11 10:54 | Progress Note ---
Assessment and Plan Assessment and plan: Acute on chronic kidney disease. Due to vasomotor nephropathy Improving on iv fluids Nephrology following Cr 2.4 today Acute gastroenteritis with nausea, vomiting, diarrhea improved Cont iv fluids Hyponatremia Na 130 today Diabetes mellitus type 2. Fingerstick q ac and hs Insulin hyperlipidemia Statin Full code status History Interval history: nausea, vomiting, diarrhea Improved Feels better Hospitalist Physical - Physical exam Narrative exam: Gen: Not in acute distress, lying in bed, HEENT: Normocephalic, atraumatic Neck: supple, no JVD Heart: S1 and S2 reg, no murmurs, rubs or gallop Lungs: Clear to auscultation, no rhonchi, no wheeze Abd: soft, non tender, non distended, normal BS, Ext: No edema, no clubbing, no cyanosis Neuro: Awake, alert, oriented X 3, no focal neurological signs - Constitutional Vitals: Temp Pulse Resp BP Pulse Ox 98.0 F 71 18 155/62 100 01/11/19 07:49 01/11/19 07:49 01/11/19 07:49 01/11/19 07:49 01/11/19 07:49 Results - Labs CBC & Chem 7: 01/10/19 03:54 01/11/19 04:37 Labs: Laboratory Last Values WBC 3.1 K/mm3 (4.5-11.0) L 01/10/19 03:54 RBC 4.44 M/mm3 (3.65-5.03) 01/10/19 03:54 Hgb 10.0 gm/dl (10.1-14.3) L 01/10/19 03:54 Hct 31.3 % (30.3-42.9) 01/10/19 03:54 MCV 71 fl (79-97) L 01/10/19 03:54 MCH 23 pg (28-32) L 01/10/19 03:54 MCHC 32 % (30-34) 01/10/19 03:54 RDW 15.1 % (13.2-15.2) 01/10/19 03:54 Plt Count 201 K/mm3 (140-440) 01/10/19 03:54 Lymph % (Auto) 14.5 % (13.4-35.0) 01/09/19 15:34 [place] % (Auto) Sample Tester 01/10/19 03:54 Eos % (Auto) 0.4 % (0.0-4.3) 01/09/19 15:34 Baso % (Auto) 0.1 % (0.0-1.8) 01/09/19 15:34 Lymph # 0.6 K/mm3 (1.2-5.4) L 01/09/19 15:34 [place] # 0.5 K/mm3 (0.0-0.8) 01/09/19 15:34 Eos # 0.0 K/mm3 (0.0-0.4) 01/09/19 15:34 Baso # 0.0 K/mm3 (0.0-0.1) 01/09/19 15:34 Add Manual Diff Complete 01/10/19 03:54 Total Counted 100 01/10/19 03:54 Seg Neutrophils % 71.7 % (40.0-70.0) H 01/09/19 15:34 Seg Neuts % (Manual) 59.0 % (40.0-70.0) 01/10/19 03:54 Band Neutrophils % 0 % 01/10/19 03:54 Lymphocytes % (Manual) 30.0 % (13.4-35.0) 01/10/19 03:54 Reactive Lymphs % (Man) 0 % 01/10/19 03:54 Monocytes % (Manual) 11.0 % (0.0-7.3) H 01/10/19 03:54 Eosinophils % (Manual) 0 % (0.0-4.3) 01/10/19 03:54 Basophils % (Manual) 0 % (0.0-1.8) 01/10/19 03:54 Metamyelocytes % 0 % 01/10/19 03:54 Myelocytes % 0 % 01/10/19 03:54 Promyelocytes % 0 % 01/10/19 03:54 Blast Cells % 0 % 01/10/19 03:54 Nucleated RBC % Not Reportable 01/10/19 03:54 Seg Neutrophils # 2.9 K/mm3 (1.8-7.7) 01/09/19 15:34 Seg Neutrophils # Man 1.8 K/mm3 (1.8-7.7) 01/10/19 03:54 Band Neutrophils # 0.0 K/mm3 01/10/19 03:54 Lymphocytes # (Manual) 0.9 K/mm3 (1.2-5.4) L 01/10/19 03:54 Abs React Lymphs (Man) 0.0 K/mm3 01/10/19 03:54 Monocytes # (Manual) 0.3 K/mm3 (0.0-0.8) 01/10/19 03:54 Eosinophils # (Manual) 0.0 K/mm3 (0.0-0.4) 01/10/19 03:54 Basophils # (Manual) 0.0 K/mm3 (0.0-0.1) 01/10/19 03:54 Metamyelocytes # 0.0 K/mm3 01/10/19 03:54 Myelocytes # 0.0 K/mm3 01/10/19 03:54 Promyelocytes # 0.0 K/mm3 01/10/19 03:54 Blast Cells # 0.0 K/mm3 01/10/19 03:54 WBC Morphology Not Reportable 01/10/19 03:54 Hypersegmented Neuts Not Reportable 01/10/19 03:54 Hyposegmented Neuts Not Reportable 01/10/19 03:54 Hypogranular Neuts Not Reportable 01/10/19 03:54 Smudge Cells Not Reportable 01/10/19 03:54 Toxic Granulation Not Reportable 01/10/19 03:54 Toxic Vacuolation Not Reportable 01/10/19 03:54 Dohle Bodies Not Reportable 01/10/19 03:54 Pelger-Huet Anomaly Not Reportable 01/10/19 03:54 Janett Rods Not Reportable 01/10/19 03:54 Platelet Estimate Consistent w auto 01/10/19 03:54 Clumped Platelets Not Reportable 01/10/19 03:54 Plt Clumps, EDTA Not Reportable 01/10/19 03:54 Large Platelets Not Reportable 01/10/19 03:54 Giant Platelets Not Reportable 01/10/19 03:54 Platelet Satelliting Not Reportable 01/10/19 03:54 Plt Morphology Comment Not Reportable 01/10/19 03:54 RBC Morphology Not Reportable 01/10/19 03:54 Dimorphic RBCs Not Reportable 01/10/19 03:54 Polychromasia Not Reportable 01/10/19 03:54 Hypochromasia Not Reportable 01/10/19 03:54 Poikilocytosis 1+ 01/10/19 03:54 Anisocytosis Few 01/10/19 03:54 Microcytosis Not Reportable 01/10/19 03:54 Macrocytosis Not Reportable 01/10/19 03:54 Spherocytes Not Reportable 01/10/19 03:54 Pappenheimer Bodies Not Reportable 01/10/19 03:54 Sickle Cells Not Reportable 01/10/19 03:54 Target Cells Not Reportable 01/10/19 03:54 Tear Drop Cells Not Reportable 01/10/19 03:54 Ovalocytes 1+ 01/10/19 03:54 Helmet Cells Not Reportable 01/10/19 03:54 [place] Bodies Not Reportable 01/10/19 03:54 [place] Rings Not Reportable 01/10/19 03:54 [place] Cells Not Reportable 01/10/19 03:54 Bite Cells Not Reportable 01/10/19 03:54 Crenated Cell Not Reportable 01/10/19 03:54 Elliptocytes Not Reportable 01/10/19 03:54 Acanthocytes (Spur) Not Reportable 01/10/19 03:54 Rouleaux Not Reportable 01/10/19 03:54 Hemoglobin C Crystals Not Reportable 01/10/19 03:54 Schistocytes Not Reportable 01/10/19 03:54 Malaria parasites Not Reportable 01/10/19 03:54 Chris Bodies Not Reportable 01/10/19 03:54 Hem Pathologist Commnt No 01/10/19 03:54 Sodium 130 mmol/L (137-145) L 01/11/19 04:37 Potassium 5.0 mmol/L (3.6-5.0) 01/11/19 04:37 Chloride 95.0 mmol/L (98-107) L 01/11/19 04:37 Carbon Dioxide 19 mmol/L (22-30) L 01/11/19 04:37 Anion Gap 21 mmol/L 01/11/19 04:37 BUN 39 mg/dL (7-17) H 01/11/19 04:37 Creatinine 2.4 mg/dL (0.7-1.2) H 01/11/19 04:37 Estimated GFR 24 ml/min 01/11/19 04:37 BUN/Creatinine Ratio 16 % 01/11/19 04:37 Glucose 119 mg/dL (65-100) H 01/11/19 04:37 POC Glucose 159 (70-105) H 01/11/19 07:36 Hemoglobin A1c 8.1 % (4-6) H 01/09/19 15:34 Osmolality 287 Mosm/kg 01/10/19 03:54 Uric Acid 10.3 mg/dL (3.5-7.6) H 01/10/19 03:54 Calcium 9.0 mg/dL (8.4-10.2) 01/11/19 04:37 Phosphorus 5.30 mg/dL (2.5-4.5) H 01/10/19 03:54 Magnesium 2.20 mg/dL (1.7-2.3) 01/10/19 03:54 Total Bilirubin 0.30 mg/dL (0.1-1.2) 01/09/19 15:34 AST 17 units/L (5-40) 01/09/19 15:34 ALT 13 units/L (7-56) 01/09/19 15:34 Alkaline Phosphatase 100 units/L (35-129) 01/09/19 15:34 Total Protein 8.3 g/dL (6.3-8.2) H 01/09/19 15:34 Albumin 4.4 g/dL (3.9-5) 01/09/19 15:34 Albumin/Globulin Ratio 1.1 % 01/09/19 15:34 Urine Color Straw (Yellow) 01/09/19 Unknown Urine Turbidity Clear (Clear) 01/09/19 Unknown Urine pH 5.0 (5.0-7.0) 01/09/19 Unknown Ur Specific [place] 1.006 (1.003-1.030) 01/09/19 Unknown Urine Protein <15 mg/dl mg/dL (Negative) 01/09/19 Unknown Urine Glucose (UA) 50 mg/dL (Negative) 01/09/19 Unknown Urine Ketones Neg mg/dL (Negative) 01/09/19 Unknown Urine Blood Neg (Negative) 01/09/19 Unknown Urine Nitrite Neg (Negative) 01/09/19 Unknown Urine Bilirubin Neg (Negative) 01/09/19 Unknown Urine Urobilinogen < 2.0 mg/dL (<2.0) 01/09/19 Unknown Ur Leukocyte Esterase Neg (Negative) 01/09/19 Unknown Urine WBC (Auto) 1.0 /HPF (0.0-6.0) 01/09/19 Unknown Urine RBC (Auto) < 1.0 /HPF (0.0-6.0) 01/09/19 Unknown U Epithel Cells (Auto) 1.0 /HPF (0-13.0) 01/09/19 Unknown Urine Mucus Few /HPF 01/09/19 Unknown Urine Osmolality 277 Mosm/kg 01/10/19 13:06 Urine Sodium 35 mmol/L 01/10/19 13:06 Active Medications - Current Medications Current Medications: Generic Name Dose Route Start Last Admin Trade Name Freq PRN Reason Stop Dose Admin Acetaminophen 650 mg 01/09/19 20:04 Tylenol PO Q4H PRN Pain MILD(1-3)/Fever >100.5/COOPER Amlodipine Besylate 10 mg 01/10/19 10:00 01/11/19 09:36 Norvasc PO 10 mg DAILY AMOR Administration Aspirin 81 mg 01/10/19 10:00 01/11/19 09:35 Baby Aspirin PO 81 mg DAILY AMOR Administration Atorvastatin Calcium 20 mg 01/10/19 10:00 01/11/19 09:36 Lipitor PO 20 mg DAILY AMOR Administration Dextrose 50 ml 01/09/19 20:04 D50w (25gm) Syringe IV PRN PRN Hypoglycemia Docusate Sodium 100 mg 01/09/19 22:00 01/11/19 09:36 Colace PO 100 mg BID AMOR Administration Gabapentin 300 mg 01/10/19 10:00 01/11/19 09:35 Neurontin PO 300 mg DAILY AMOR Administration Heparin Sodium (Porcine) 5,000 unit 01/09/19 22:00 01/11/19 09:38 Heparin SUB-Q 5,000 unit Q12HR AMOR Administration Sodium Chloride 1,000 mls @ 50 mls/hr 01/10/19 09:30 01/11/19 06:02 Nacl 0.9% 1000 Ml IV 50 mls/hr DIRECT AMOR Administration Insulin Glargine 45 units 01/09/19 22:00 01/10/19 22:01 Lantus SUB-Q Not Given QHS [facility] Insulin Human Lispro 0 unit 01/09/19 22:00 01/11/19 08:19 Humalog SUB-Q 2 unit ACHS AMOR Administration Protocol Insulin Human Lispro 5 unit 01/10/19 07:30 01/11/19 08:20 Humalog SUB-Q 5 unit TIDAC AMOR Administration Latanoprost 1 drops 01/09/19 22:00 01/10/19 22:02 Latanoprost 0.005% OD Not Given QHS AMOR Metoclopramide HCl 10 mg 01/09/19 20:04 Reglan IV Q6H PRN Nausea And Vomiting Metoprolol Tartrate 25 mg 01/10/19 10:00 01/11/19 09:36 Lopressor PO 25 mg DAILY AMOR Administration Ondansetron HCl 4 mg 01/09/19 20:04 Zofran IV Q6H PRN Nausea And Vomiting Pantoprazole Sodium 40 mg 01/09/19 21:00 01/11/19 09:35 Protonix PO 40 mg DAILY AMOR Administration Sodium Bicarbonate 650 mg 01/11/19 09:30 01/11/19 09:35 Sodium Bicarbonate PO 650 mg TID AMOR Administration Sodium Chloride 10 ml 01/09/19 22:00 01/11/19 09:36 Sodium Chloride Flush Syringe 10 Ml IV 10 ml BID AMOR Administration Sodium Chloride 10 ml 01/09/19 20:04 Sodium Chloride Flush Syringe 10 Ml IV PRN PRN LINE FLUSH Nutrition/Malnutrition Assess - Dietary Evaluation Nutrition/Malnutrition Findings: Nutrition Notes Start: 01/10/19 10:03 Freq: Status: Active Protocol: Document 01/10/19 10:04 RS (Rec: 01/10/19 11:24 RS [id number]) Co-Sign 01/10/19 10:04 LM Nutrition Notes 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 Pt has a Chano score of 22 and reports no sores or pain laying down/ walking. Pt reports no N/V/D today and fair appetite. Observed <10% of breakfast tray consumed. 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 Briefly disucssed DM management, A1c status, and fluctuating BGL with pt. Pt reports having DM for 36 years. Burn Absent Trauma Absent GI Symptoms None Food Allergy No Current % PO Poor (25-49%) Minimum of two criteria No physical signs of malnutrition #1 Nutrition Diagnosis Inadequate oral intake Etiology poor appetite secondary to chronic illness As Evidenced by Signs and Symptoms <10% of breakfast tray consumed Is patient on ventilator? No Is Patient Ambulatory and/or Out of Bed Yes REE-([facility]-ambulatory/OOB) [ [id number] [id number]] Calculation Used for Recommendations [facility] Additional Notes PRO Needs: 0.8-1.2g/kg (63-95g/day) Fluid needs 1.5-1.9L/day or per MD Nutrition Intervention Change Diet Order: Continue diet Add Supplement/Snack (indicate name/kcal Ensure Clear mixed flor daily /protein ) Provides kCal: 240 Provides Protein (gm) 8 Goal #1 meet 75% of kcal/PRO needs via PO+ONS intake Goal #2 diet advancement Anticipated Discharge Needs: Unable to determine at this time Follow-Up By: 01/14/19 Additional Comments F/U diet advancement, PO intake, ONS tolerance
--- NOTE | 2019-01-11 14:10 | Progress Note ---
Assessment and Plan 1. 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 Continue IV fluids. Renal function is improving. Monitor renal function. Avoid nephrotoxic agents. Meds dosage based on GFR. 2. FEN: Hyponatremia, 2/2 volume depletion. Metabolic acidosis, started on Sodium bicarbonate. Monitor lytes. 3. Acute gastroenteritis: Improved 4. DM. 5. Hypertension. Subjective Date of service: 01/11/19 Interval history: Patient was seen and examined at the bedside. Doing better today. Objective - Vital Signs Vital signs: Vital Signs - 12hr 01/11/19 01/11/19 06:13 07:49 Temperature 98.0 F Pulse Rate 53 L 71 Respiratory 18 Rate Blood Pressure 155/62 O2 Sat by Pulse 100 Oximetry - General Appearance General appearance: well-developed, well-nourished, appears stated age, other (no distress) EENT: ATNC, PERRL, mucous membranes moist, hearing intact, vision intact Neck: supple Respiratory: Present: Clear to Ascultation Cardiology: regular, S1S2, no murmurs Gastrointestinal: normoactive bowel sounds, no tenderness, no distended Integumentary: no rash, warm and dry Neurologic: no focal deficit, no asterixis, alert and oriented x3 Musculoskeletal: other (no edema) Psychiatric: cooperative - Lab 01/10/19 03:54 01/11/19 04:37 Most recent lab results Calcium 9.0 mg/dL (8.4-10.2) 01/11/19 04:37 Phosphorus 5.30 mg/dL (2.5-4.5) H 01/10/19 03:54 Magnesium 2.20 mg/dL (1.7-2.3) 01/10/19 03:54 Urine Sodium 35 mmol/L 01/10/19 13:06 Medications & Allergies - Medications Allergies/Adverse Reactions: Allergies No Known Allergies Allergy (Verified 10/03/18 08:49) Home Medications: Home Medications Medication Instructions Recorded Confirmed Last Taken Type Aspirin [Aspirin BABY CHEW TAB] 81 mg PO DAILY 10/10/14 01/09/19 10/10/14 History Insulin Glargine [Lantus VIAL] 45 unit SUB-Q QHS 10/10/14 01/09/19 10/09/14 History Amlodipine Besylate 10 mg PO DAILY 02/28/18 01/09/19 Unknown History Gabapentin [Neurontin] 300 mg PO DAILY 10/30/18 01/09/19 Unknown History Latanoprost 0.005% [Xalatan 0.005%] 1 drop OP QHS 10/30/18 01/09/19 Unknown History Metoprolol 25 mg PO DAILY 10/30/18 01/09/19 Unknown History AtorvaSTATin [Lipitor] 20 mg PO DAILY 01/09/19 01/09/19 Unknown History Famotidine [Pepcid] 40 mg PO DAILY 01/09/19 01/09/19 Unknown History Furosemide [Lasix TAB] 20 mg PO DAILY 01/09/19 01/09/19 Unknown History Insulin Aspart [Novolog] 5 unit SQ TID 01/09/19 01/09/19 Unknown History Pantoprazole [Protonix TAB] 40 mg PO DAILY 01/09/19 01/09/19 Unknown History Active Medications: Generic Name Dose Route Start Last Admin Trade Name Freq PRN Reason Stop Dose Admin Acetaminophen 650 mg 01/09/19 20:04 Tylenol PO Q4H PRN Pain MILD(1-3)/Fever >100.5/COOPER Amlodipine Besylate 10 mg 01/10/19 10:00 01/11/19 09:36 Norvasc PO 10 mg DAILY AMOR Administration Aspirin 81 mg 01/10/19 10:00 01/11/19 09:35 Baby Aspirin PO 81 mg DAILY AMOR Administration Atorvastatin Calcium 20 mg 01/10/19 10:00 01/11/19 09:36 Lipitor PO 20 mg DAILY AMOR Administration Dextrose 50 ml 01/09/19 20:04 D50w (25gm) Syringe IV PRN PRN Hypoglycemia Docusate Sodium 100 mg 01/09/19 22:00 01/11/19 09:36 Colace PO 100 mg BID AMOR Administration Gabapentin 300 mg 01/10/19 10:00 01/11/19 09:35 Neurontin PO 300 mg DAILY AMOR Administration Heparin Sodium (Porcine) 5,000 unit 01/09/19 22:00 01/11/19 09:38 Heparin SUB-Q 5,000 unit Q12HR AMOR Administration Sodium Chloride 1,000 mls @ 50 mls/hr 01/10/19 09:30 01/11/19 06:02 Nacl 0.9% 1000 Ml IV 50 mls/hr DIRECT AMOR Administration Insulin Glargine 45 units 01/09/19 22:00 01/10/19 22:01 Lantus SUB-Q Not Given QHS [facility] Insulin Human Lispro 0 unit 01/09/19 22:00 01/11/19 13:28 Humalog SUB-Q Not Given ACHS [facility] Protocol Insulin Human Lispro 5 unit 01/10/19 07:30 01/11/19 13:29 Humalog SUB-Q Not Given TIDAC [facility] Latanoprost 1 drops 01/09/19 22:00 01/10/19 22:02 Latanoprost 0.005% OD Not Given QHS [facility] Metoclopramide HCl 10 mg 01/09/19 20:04 Reglan IV Q6H PRN Nausea And Vomiting Metoprolol Tartrate 25 mg 01/10/19 10:00 01/11/19 09:36 Lopressor PO 25 mg DAILY AMOR Administration Ondansetron HCl 4 mg 01/09/19 20:04 Zofran IV Q6H PRN Nausea And Vomiting Pantoprazole Sodium 40 mg 01/09/19 21:00 01/11/19 09:35 Protonix PO 40 mg DAILY AMOR Administration Sodium Bicarbonate 650 mg 01/11/19 09:30 01/11/19 13:28 Sodium Bicarbonate PO 650 mg TID AMOR Administration Sodium Chloride 10 ml 01/09/19 22:00 01/11/19 09:36 Sodium Chloride Flush Syringe 10 Ml IV 10 ml BID AMOR Administration Sodium Chloride 10 ml 01/09/19 20:04 Sodium Chloride Flush Syringe 10 Ml IV PRN PRN LINE FLUSH
[2019-01-11] MEDS: LATANOPROST 0.005% OPHTH SOLN 2.5 ML OD SCH ×2 (23:16→23:17)
[2019-01-11] MEDS: INSULIN GLARGINE 100 UNITS/ML SUB-Q SCH (23:30)
[2019-01-12 05:56] LABS: Calcium 8.5 mg/dL (8.4-10.2)
[2019-01-12] MEDS ORDERED: SODIUM POLYSTYRENE 15 GM/60 ML ORAL LIQD PO ONE (07:56)
[2019-01-12] MEDS ORDERED: INSULIN REGULAR, HUMAN 100 UNITS/1 ML IV STA (07:57)
[2019-01-12] MEDS ORDERED: DEXTROSE 50% IN WATER (25GM) 50 ML SYRINGE IV ONE (07:57)
[2019-01-12] MEDS: INSULIN LISPRO 100 UNIT/ML SUB-Q SCH ×4 (09:07→12:09)
[2019-01-12] MEDS: GABAPENTIN 300 MG CAP PO SCH (09:56)
[2019-01-12] MEDS: SODIUM BICARBONATE 650 MG TAB PO SCH ×2 (09:56→14:24)
[2019-01-12] MEDS: DOCUSATE SODIUM 100 MG CAP PO SCH (09:56)
[2019-01-12] MEDS: amLODIPine 10 MG TAB PO SCH (09:56)
[2019-01-12] MEDS: PANTOPRAZOLE 40 MG TAB PO SCH (09:56)
[2019-01-12] MEDS: HEPARIN 5,000 UNIT/1 ML VIAL SUB-Q SCH (09:56)
[2019-01-12] MEDS: ASPIRIN 81 MG TAB CHEW PO SCH (09:56)
[2019-01-12] MEDS: METOPROLOL TARTRATE 25 MG TAB PO SCH (09:57)
--- NOTE | 2019-01-12 12:19 | Progress Note ---
Assessment and Plan 1. 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 Continue IV fluids. Renal function is better. Monitor renal function. Avoid nephrotoxic agents. Meds dosage based on GFR. 2. FEN: Hyponatremia, 2/2 volume depletion. Metabolic acidosis, improving. Hyperkalemia, improved. Monitor lytes. 3. Acute gastroenteritis: Improved 4. DM. 5. Hypertension. F/u with me in 2 weeks. Subjective Date of service: 01/12/19 Interval history: Patient was seen and examined at the bedside. Doing better today. Objective - Vital Signs Vital signs: Vital Signs - 12hr 01/12/19 01/12/19 01/12/19 01:00 02:25 07:43 Temperature 98.5 F 98.3 F Pulse Rate 61 64 Respiratory 18 18 Rate Blood Pressure 137/57 136/58 O2 Sat by Pulse 100 100 100 Oximetry - Lab 01/10/19 03:54 01/12/19 14:14 Most recent lab results Calcium 8.5 mg/dL (8.4-10.2) 01/12/19 04:54 Phosphorus 5.30 mg/dL (2.5-4.5) H 01/10/19 03:54 Magnesium 2.20 mg/dL (1.7-2.3) 01/10/19 03:54 Urine Sodium 35 mmol/L 01/10/19 13:06 Medications & Allergies - Medications Allergies/Adverse Reactions: Allergies No Known Allergies Allergy (Verified 10/03/18 08:49) Home Medications: Home Medications Medication Instructions Recorded Confirmed Last Taken Type Aspirin [Aspirin BABY CHEW TAB] 81 mg PO DAILY 10/10/14 01/09/19 10/10/14 History Insulin Glargine [Lantus VIAL] 45 unit SUB-Q QHS 10/10/14 01/09/19 10/09/14 History Amlodipine Besylate 10 mg PO DAILY 02/28/18 01/09/19 Unknown History Gabapentin [Neurontin] 300 mg PO DAILY 10/30/18 01/09/19 Unknown History Latanoprost 0.005% 1 drop OP QHS 10/30/18 01/09/19 Unknown History Metoprolol 25 mg PO DAILY 10/30/18 01/09/19 Unknown History AtorvaSTATin [Lipitor] 20 mg PO DAILY 01/09/19 01/09/19 Unknown History Famotidine [Pepcid] 40 mg PO DAILY 01/09/19 01/09/19 Unknown History Insulin Aspart [NovoLOG 100 5 unit SQ TID 01/09/19 01/09/19 Unknown History UNITS/ML VIAL] Pantoprazole [Protonix TAB] 40 mg PO DAILY 01/09/19 01/09/19 Unknown History Active Medications: Generic Name Dose Route Start Last Admin Trade Name Freq PRN Reason Stop Dose Admin Acetaminophen 650 mg 01/09/19 20:04 Tylenol PO Q4H PRN Pain MILD(1-3)/Fever >100.5/COOPER Amlodipine Besylate 10 mg 01/10/19 10:00 01/12/19 09:56 Norvasc PO 10 mg DAILY AMOR Administration Aspirin 81 mg 01/10/19 10:00 01/12/19 09:56 Baby Aspirin PO 81 mg DAILY AMOR Administration Atorvastatin Calcium 20 mg 01/10/19 10:00 01/12/19 09:56 Lipitor PO 20 mg DAILY AMOR Administration Dextrose 50 ml 01/09/19 20:04 D50w (25gm) Syringe IV PRN PRN Hypoglycemia Docusate Sodium 100 mg 01/09/19 22:00 01/12/19 09:56 Colace PO 100 mg BID AMOR Administration Gabapentin 300 mg 01/10/19 10:00 01/12/19 09:56 Neurontin PO 300 mg DAILY AMOR Administration Heparin Sodium (Porcine) 5,000 unit 01/09/19 22:00 01/12/19 09:56 Heparin SUB-Q 5,000 unit Q12HR AMOR Administration Sodium Chloride 1,000 mls @ 75 mls/hr 01/10/19 09:30 01/11/19 23:20 Nacl 0.9% 1000 Ml IV 50 mls/hr DIRECT AMOR Administration Insulin Glargine 45 units 01/09/19 22:00 01/11/19 23:30 Lantus SUB-Q 45 units QHS [facility] Administration Insulin Human Lispro 0 unit 01/09/19 22:00 01/12/19 12:09 Humalog SUB-Q Not Given ACHS [facility] Protocol Insulin Human Lispro 5 unit 01/10/19 07:30 01/12/19 12:09 Humalog SUB-Q Not Given TIDAC [facility] Latanoprost 1 drops 01/09/19 22:00 01/11/19 23:17 Latanoprost 0.005% OD 1 drops QHS [facility]OR Administration Metoclopramide HCl 10 mg 01/09/19 20:04 Reglan IV Q6H PRN Nausea And Vomiting Metoprolol Tartrate 25 mg 01/10/19 10:00 01/12/19 09:57 Lopressor PO 25 mg DAILY AMOR Administration Ondansetron HCl 4 mg 01/09/19 20:04 Zofran IV Q6H PRN Nausea And Vomiting Pantoprazole Sodium 40 mg 01/09/19 21:00 01/12/19 09:56 Protonix PO 40 mg DAILY AMOR Administration Sodium Bicarbonate 650 mg 01/11/19 09:30 01/12/19 09:56 Sodium Bicarbonate PO 650 mg TID AMOR Administration Sodium Chloride 10 ml 01/09/19 22:00 01/12/19 09:57 Sodium Chloride Flush Syringe 10 Ml IV 10 ml BID AMOR Administration Sodium Chloride 10 ml 01/09/19 20:04 Sodium Chloride Flush Syringe 10 Ml IV PRN PRN LINE FLUSH
--- NOTE | 2019-01-12 14:50 | Discharge Summary ---
Providers - Providers Date of Admission: 01/09/19 20:04 Date of discharge: 01/12/19 Attending physician: SARA BELTRÁN 01/09/19 20:04 Consult to Physician [CONS] Routine Comment: called dr. gilliland/ jessica Consulting Provider: MATTHEW GILLILAND Physician Instructions: Reason For Exam: KD superimposed CKD, hyponatremia est pt 01/10/19 11:17 Physical Therapy Evaluation and Treat [CONS] Routine Comment: Reason For Exam: Weakness 01/10/19 16:30 Occupational Therapy Evaluate and Treat [CONS] Routine Comment: Reason For Exam: Debility Primary care physician: [employer]ED SURVEYOR Hospitalization Condition: Fair Hospital course: Patient is 78-year-old -Thai female with history of diabetes with neuropathy, hypertension, CHF, HLD, CKD who presented to [facility] ED with complaints of nausea vomiting and diarrhea for 2 days. She admits to decrease appetite and poor oral intake over the past few days. She denies polyuria and polyphagia. She was seen and evaluated in ED. Initial Cr was 3.3 and sodium 126. She was diagnosed with acute on CKD and acute gastroenteritis. She was admitted, started on iv fluids, followed by Nephrology. Acute on chronic kidney disease. Due to vasomotor nephropathy Improving on iv fluids, went close to baseline Nephrology following Acute gastroenteritis with nausea, vomiting, diarrhea improved Cont iv fluids Hyponatremia Improved on iv fluids Diabetes mellitus type 2. Fingerstick q ac and hs hyperlipidemia Statin Total time spent on discharge, 32 mins Disposition: DC-01 TO HOME OR SELFCARE - Discharge Diagnoses (1) Acute gastroenteritis Status: Acute (2) Acute on chronic kidney failure Status: Acute (3) Vasomotor nephropathy Status: Acute (4) Diabetes mellitus type 2 in nonobese Status: Acute (5) CKD (chronic kidney disease) Status: Acute Qualifiers: Chronic kidney disease stage: unspecified stage Qualified Code(s): N18.9 - Chronic kidney disease, unspecified (6) Dehydration Status: Acute (7) Diarrhea Status: Acute Qualifiers: Diarrhea type: unspecified type Qualified Code(s): R19.7 - Diarrhea, unspecified (8) Hyponatremia Status: Acute (9) Metabolic acidosis Status: Acute (10) Nausea & vomiting Status: Acute Qualifiers: Vomiting type: unspecified Vomiting Intractability: intractable Qualified Code(s): R11.2 - Nausea with vomiting, unspecified Core Measure Documentation - Palliative Care Palliative Care/ Comfort Measures: Not Applicable - Core Measures Any of the following diagnoses?: none Exam - Constitutional Vitals: Temp Pulse Resp BP Pulse Ox 98.3 F 64 18 136/58 100 01/12/19 07:43 01/12/19 07:43 01/12/19 07:43 01/12/19 07:43 01/12/19 07:43 Plan Activity: no restrictions Diet: low fat, low cholesterol, low salt, diabetic Plan of Treatment: 1.Follow up with PCP in 1 week. 2.Follow up with Dr. Gilliland in 1 week 3.Repeat BMP in 1 week to be followed by Dr. Gilliland Follow up with: PRIMARY CAREMD [Primary Care Provider] - 7 Days
[2019-01-12] MEDS ORDERED: hydrALAZINE 20 MG/1 ML INJ IV STA (15:01)
[2019-01-12 15:46] VITALS: BP 143/55
== END 2019-01-12 16:23 | disposition home or self-care (01) | DRG 640 ==
LOC: ED 14:20 → 2B-ACE 20:04
PROVIDERS: ADMIT Internal Medicine; ATTEND Internal Medicine
DX: E86.0 Dehydration (principal); N17.0 Acute kidney failure with tubular necrosis; I13.0 Hypertensive heart and chronic kidney disease with heart failure and stage 1 through stage 4 chronic kidney disease, or unspecified chronic kidney disease; K52.9 Noninfective gastroenteritis and colitis, unspecified; E87.1 Hypo-osmolality and hyponatremia; E87.2 Acidosis; E87.5 Hyperkalemia; N18.3 Chronic kidney disease, stage 3 (moderate); E78.5 Hyperlipidemia, unspecified; K21.9 Gastro-esophageal reflux disease without esophagitis; I50.9 Heart failure, unspecified; E11.40 Type 2 diabetes mellitus with diabetic neuropathy, unspecified; E11.65 Type 2 diabetes mellitus with hyperglycemia; M19.90 Unspecified osteoarthritis, unspecified site; E11.22 Type 2 diabetes mellitus with diabetic chronic kidney disease; Z79.82 Long term (current) use of aspirin; Z79.899 Other long term (current) drug therapy; Z79.4 Long term (current) use of insulin
CPT/HCPCS: 36415; 80048; 80053; 81001; 82962; 83036; 83735; 83930; 83935; 84100; 84132; 84300; 84550; 85007; 85025; 87116; 96374; G0378; A9270-GY; J0360; J1644; J1815; J2405; J2765; J7030; J7040

== ENCOUNTER 2020-04-17 22:03 | Observation (INO) | payer MEDICARE ==
[2020-04-17] MEDS ORDERED: ASPIRIN 325 MG TAB PO ONE (22:43)
--- NOTE | 2020-04-17 23:37 | XRay Report ---
CHEST 1 VIEW 2322 INDICATION / CLINICAL INFORMATION: Chest Pain COMPARISON: 04/08/2020 FINDINGS: SUPPORT DEVICES: None HEART / MEDIASTINUM: No significant abnormality. LUNGS / PLEURA: No significant pulmonary or pleural abnormality. No pneumothorax. ADDITIONAL FINDINGS: No significant additional findings. IMPRESSION: No significant acute abnormality Signer Name: Brandon Hector MD Signed: 04/17/2020 11:32 PM Workstation Name: [id number]
[2020-04-17 23:40] LABS: BUN/Creatinine Ratio 24; Blood Urea Nitrogen 56 mg/dL (7-17); Calcium 8.5 mg/dL (8.4-10.2); Hematocrit 37.8 % (30.3-42.9); Hemolysis Index 17; Mean Corpuscular HGB Conc 32 % (30-34); Mean Corpuscular Volume 74 fl (79-97); Platelet Count 522 K/mm3 (140-440); Red Cell Distribution Width 15.7 % (13.2-15.2)
--- NOTE | 2020-04-17 23:55 | Emergency Department Report ---
ED Chest Pain HPI - General Chief Complaint: Chest Pain Stated Complaint: CHEST PAIN PUI?: No Time Seen by Provider: 04/17/20 23:35 Source: patient Mode of arrival: Ambulatory Limitations: No Limitations - History of Present Illness Initial Comments: Patient is a 79-year-old female complains of chest pain and shortness of breath. Patient states he chest pain started yesterday. Patient states the chest pain is worsening. Patient states that shortness of breath is worsening. Patient states the chest pain is in the sternal region. Patient states that chest pain is nonradiating. Patient states the chest pain is a 6 out of 10. Patient states the pain is better with rest and worse with exertion. Patient states her shortness of breath is better with rest and worse with exertion. Patient denies fever or chills. Patient denies cough. Patient denies nausea and vomiting. Patient denies diaphoresis. Patient states she had COVID-19 earlier this month and was admitted here. Patient denies recent travel. Patient denies recent international travel. Patient denies fever and chills. Patient denies cough. Patient denies diarrhea. MD Complaint: chest pain -: Sudden Onset: during rest Pain Location: substernal Pain Radiation: none Severity scale (0 -10): 6 Quality: sharp Consistency: constant Improves With: rest Worsens With: exertion re: dyspnea. denies: nausea, vomting, diaphoresis, sense of impending doom Other Symptoms: palpitations. denies: cough, fever, syncope, rash, acid taste in mouth, leg swelling, burping Treatments Prior to Arrival: aspirin Aspirin use within the Past 7 Days: (1) Yes - Related Data On Oral Contraceptives: No Home Medications Medication Instructions Recorded Confirmed Last Taken Insulin Glargine [Lantus VIAL] 45 unit SUB-Q QHS 10/10/14 04/08/20 04/07/20 Gabapentin 300 mg PO QPM 10/30/18 04/08/20 04/07/20 Latanoprost 0.005% 1 drop OU QHS 10/30/18 04/08/20 04/07/20 AtorvaSTATin [Lipitor] 20 mg PO DAILY 01/09/19 04/08/20 04/08/20 Insulin Aspart (Nf) [NovoLOG 100 10 unit SQ TID 01/09/19 04/10/20 04/08/20 UNITS/ML VIAL] Pantoprazole [Protonix TAB] 40 mg PO DAILY 01/09/19 04/08/20 04/08/20 Aspirin EC [Halfprin EC] 81 mg PO QDAY 01/27/19 04/08/20 04/08/20 Metoprolol Xl [Metoprolol 25 mg PO QDAY 01/27/19 04/08/20 04/08/20 SUCCINATE ER TAB] amLODIPine 10 mg PO DAILY 01/27/19 04/08/20 04/08/20 Bumetanide 0.5 mg PO DAILY 04/08/20 04/08/20 04/08/20 Previous Rx's Medication Instructions Recorded Last Taken Type Apixaban [Eliquis] 2.5 mg PO Q12HR #20 tablet 04/10/20 Unknown Rx Ascorbic Acid [Vitamin C] 500 mg PO QDAY #10 tablet 04/10/20 Unknown Rx Cholecalciferol (Vitamin D3) 5,000 unit PO DAILY #10 tablet 04/10/20 Unknown Rx [Vitamin D3] Zinc Sulfate 220 mg PO BID #20 capsule 04/10/20 Unknown Rx dexAMETHasone [Decadron] 6 mg PO DAILY #7 tablet 04/10/20 Unknown Rx hydrALAZINE [Apresoline TAB] 50 mg PO Q8HR #90 tablet 04/10/20 Unknown Rx Allergies Allergy/AdvReac Type Severity Reaction Status Date / Time No Known Allergies Allergy Verified 10/03/18 08:49 Heart Score - HEART Score History: Moderately suspicious EKG: Non-specific Age: > 65 Risk factors: > 3 risk factors or hx of atherosclerotic disease Troponin: < normal limit HEART Score: 6 ED Review of Systems ROS: Stated complaint: CHEST PAIN Other details as noted in HPI Constitutional: denies: chills, fever Eyes: denies: eye pain, eye discharge, vision change ENT: denies: ear pain, throat pain Respiratory: shortness of breath, SOB with exertion, SOB at rest. denies: cough, wheezing Cardiovascular: chest pain, palpitations, dyspnea on exertion Endocrine: no symptoms reported Gastrointestinal: denies: abdominal pain, nausea, diarrhea Genitourinary: denies: urgency, dysuria, discharge Musculoskeletal: denies: back pain, joint swelling, arthralgia Skin: denies: rash, lesions Neurological: denies: headache, weakness, paresthesias Psychiatric: denies: anxiety, depression Hematological/Lymphatic: denies: easy bleeding, easy bruising ED Past Medical Hx - Past Medical History Previous Medical History?: Yes Hx Hypertension: Yes Hx Congestive Heart Failure: Yes Hx Diabetes: Yes Hx GERD: Yes Hx Renal Disease: Yes (no dialysis at this time) Hx Arthritis: Yes Hx Asthma: No Additional medical history: High cholesterol - Surgical History Past Surgical History?: Yes Additional Surgical History: Chase. lumpectomy - Family History Family history: no significant - Social History Smoking Status: Never Smoker Substance Use Type: None - Medications Home Medications: Home Medications Medication Instructions Recorded Confirmed Last Taken Type Insulin Glargine [Lantus VIAL] 45 unit SUB-Q QHS 10/10/14 04/08/20 04/07/20 History Gabapentin 300 mg PO QPM 10/30/18 04/08/20 04/07/20 History Latanoprost 0.005% 1 drop OU QHS 10/30/18 04/08/20 04/07/20 History AtorvaSTATin [Lipitor] 20 mg PO DAILY 01/09/19 04/08/20 04/08/20 History Insulin Aspart (Nf) [NovoLOG 100 10 unit SQ TID 01/09/19 04/10/20 04/08/20 History UNITS/ML VIAL] Pantoprazole [Protonix TAB] 40 mg PO DAILY 01/09/19 04/08/20 04/08/20 History Aspirin EC [Halfprin EC] 81 mg PO QDAY 01/27/19 04/08/20 04/08/20 History Metoprolol Xl [Metoprolol 25 mg PO QDAY 01/27/19 04/08/20 04/08/20 History SUCCINATE ER TAB] amLODIPine 10 mg PO DAILY 01/27/19 04/08/20 04/08/20 History Bumetanide 0.5 mg PO DAILY 04/08/20 04/08/20 04/08/20 History Apixaban [Eliquis] 2.5 mg PO Q12HR #20 tablet 04/10/20 Unknown Rx Ascorbic Acid [Vitamin C] 500 mg PO QDAY #10 tablet 04/10/20 Unknown Rx Cholecalciferol (Vitamin D3) 5,000 unit PO DAILY #10 tablet 04/10/20 Unknown Rx [Vitamin D3] Zinc Sulfate 220 mg PO BID #20 capsule 04/10/20 Unknown Rx dexAMETHasone [Decadron] 6 mg PO DAILY #7 tablet 04/10/20 Unknown Rx hydrALAZINE [Apresoline TAB] 50 mg PO Q8HR #90 tablet 04/10/20 Unknown Rx ED Physical Exam - General Limitations: No Limitations General appearance: alert, in no apparent distress - Head Head exam: Present: atraumatic, normocephalic - Eye Eye exam: Present: normal appearance - ENT ENT exam: Present: mucous membranes moist - Neck Neck exam: Present: normal inspection - Respiratory Respiratory exam: Present: normal lung sounds bilaterally. Absent: respiratory distress, wheezes, rales, chest wall tenderness - Cardiovascular Cardiovascular Exam: Present: regular rate, normal rhythm. Absent: systolic mu rmur, diastolic murmur, rubs, gallop - GI/Abdominal GI/Abdominal exam: Present: soft, normal bowel sounds - Extremities Exam Extremities exam: Present: normal inspection - Back Exam Back exam: Present: normal inspection - Neurological Exam Neurological exam: Present: alert, oriented X3 - Psychiatric Psychiatric exam: Present: normal affect, normal mood - Skin Skin exam: Present: warm, dry, intact, normal color. Absent: rash ED Course Vital Signs 04/17/20 04/18/20 22:18 00:47 Temperature 97.8 F 98.1 F Pulse Rate 93 H 76 Respiratory 18 18 Rate Blood Pressure 139/56 Blood Pressure 119/76 [Left] O2 Sat by Pulse 98 100 Oximetry MOIRA score - Moira Score Age > 65: (1) Yes Aspirin use within the Past 7 Days: (1) Yes 3 or more CAD Risk Factors: (1) Yes 2 or more Angina events in past 24 hrs: (0) No Known CAD with more than 50% Stenosis: (0) No Elevated Cardiac Markers: (0) No ST Deviation Greater than 0.5mm: (0) No MOIRA Score: 3 ED Medical Decision Making - Lab Data Result diagrams: 04/17/20 22:54 04/17/20 22:54 - EKG Data -: EKG Interpreted by Me EKG shows normal: sinus rhythm, axis, intervals, QRS complexes, ST-T waves Rate: normal - Radiology Data Radiology results: report reviewed, image reviewed interpreted by me: Chest x-ray: No pneumonia, no pneumothorax, no foreign body, no osseous findings, no acute findings - Medical Decision Making Patient is a 79-year-old female that presents emergency room with complaints of chest pain or shortness of breath. Patient had labs done which were essentially unremarkable except for worsening renal function. Patient had troponin done an d it was negative x1. Patient had a chest x-ray which was negative for acute findings. Patient's EKG is negative for acute findings. Patient admitted to the hospitalist service for further evaluation and treatment and rule out ACS. - Differential Diagnosis ACS, chest pain, shortness of breath, pneumonia, Critical Care Time: Yes Critical care time in (mins) excluding proc time.: 35 Critical care attestation.: If time is entered above; I have spent that time in minutes in the direct care of this critically ill patient, excluding procedure time. Critical Care Time: 35 minutes ED Disposition Clinical Impression: Metabolic acidosis, Acute chest pain, SOB (shortness of breath) Acute on chronic kidney failure Qualifiers: Acute renal failure type: unspecified Chronic kidney disease stage: unspecified stage Qualified Code(s): N17.9 - Acute kidney failure, unspecified Chest pain Qualifiers: Chest pain type: unspecified Qualified Code(s): R07.9 - Chest pain, unspecified Disposition: -09 OP ADMIT IP TO THIS HOSP Is pt being admited?: Yes Does the pt Need Aspirin: No Condition: Critical Time of Disposition: 23:56
[2020-04-18] MEDS ORDERED: ACETAMINOPHEN 325 MG TAB PO PRN (00:20)
[2020-04-18] MEDS ORDERED: MORPHINE 4 MG/1 ML INJ IV PRN (00:20)
[2020-04-18] MEDS ORDERED: NITROGLYCERIN 0.4 MG TAB SUBL SL PRN (00:20)
--- NOTE | 2020-04-18 00:26 | History and Physical Report ---
History of Present Illness Date of examination: 04/18/20 Chief complaint: Chest pain History of present illness: 79-year-old female was brought to the emergency room because of chest pain and shortness of breath. chest pain is 6/10 retrosternal nonradiating started yesterday. Patient states the chest pain is worsening. Patient states the pain is better with rest and worse with exertion. Patient states her shortness of breath is better with rest and worse with exertion. Patient denies fever or chills. Patient denies cough. Patient denies nausea and vomiting. Patient denies diaphoresis In the ER patient cardiac enzyme is negative but patient BUN is 56 creatinine 2.3 Medications and Allergies Allergies Allergy/AdvReac Type Severity Reaction Status Date / Time No Known Allergies Allergy Verified 10/03/18 08:49 Home Medications Medication Instructions Recorded Confirmed Last Taken Type Insulin Glargine [Lantus VIAL] 45 unit SUB-Q QHS 10/10/14 04/08/20 04/07/20 History Gabapentin 300 mg PO QPM 10/30/18 04/08/20 04/07/20 History Latanoprost 0.005% 1 drop OU QHS 10/30/18 04/08/20 04/07/20 History AtorvaSTATin [Lipitor] 20 mg PO DAILY 01/09/19 04/08/20 04/08/20 History Insulin Aspart (Nf) [NovoLOG 100 10 unit SQ TID 01/09/19 04/10/20 04/08/20 History UNITS/ML VIAL] Pantoprazole [Protonix TAB] 40 mg PO DAILY 01/09/19 04/08/20 04/08/20 History Aspirin EC [Halfprin EC] 81 mg PO QDAY 01/27/19 04/08/20 04/08/20 History Metoprolol Xl [Metoprolol 25 mg PO QDAY 01/27/19 04/08/20 04/08/20 History SUCCINATE ER TAB] amLODIPine 10 mg PO DAILY 01/27/19 04/08/20 04/08/20 History Bumetanide 0.5 mg PO DAILY 04/08/20 04/08/20 04/08/20 History Apixaban [Eliquis] 2.5 mg PO Q12HR #20 tablet 04/10/20 Unknown Rx Ascorbic Acid [Vitamin C] 500 mg PO QDAY #10 tablet 04/10/20 Unknown Rx Cholecalciferol (Vitamin D3) 5,000 unit PO DAILY #10 tablet 04/10/20 Unknown Rx [Vitamin D3] Zinc Sulfate 220 mg PO BID #20 capsule 04/10/20 Unknown Rx dexAMETHasone [Decadron] 6 mg PO DAILY #7 tablet 04/10/20 Unknown Rx hydrALAZINE [Apresoline TAB] 50 mg PO Q8HR #90 tablet 04/10/20 Unknown Rx Review of Systems Cardiovascular: chest pain, shortness of breath Respiratory: shortness of breath Exam - Constitutional General appearance: Present: no acute distress - EENT Eyes: Present: PERRL ENT: hearing intact, clear oral mucosa - Neck Neck: Present: supple, normal ROM - Respiratory Respiratory effort: normal Respiratory: bilateral: diminished - Cardiovascular Heart Sounds: Present: S1 & S2. Absent: rub, click - Extremities Extremities: pulses symmetrical, No edema Peripheral Pulses: within normal limits - Abdominal General gastrointestinal: Present: soft, non-tender, non-distended, normal bowel sounds Female genitourinary: Present: normal - Integumentary Integumentary: Present: clear, warm, dry - Musculoskeletal Musculoskeletal: gait normal, strength equal bilaterally - Psychiatric Psychiatric: appropriate mood/affect, intact judgment & insight - Neurologic Neurologic: CNII-XII intact, moves all extremities HEART Score - HEART Score EKG: Non-specific Age: > 65 Risk factors: > 3 risk factors or hx of atherosclerotic disease Troponin: Troponin T < 0.010 ng/mL (0.00-0.029) 04/17/20 22:54 Troponin: < normal limit Results - Labs CBC & Chem 7: 04/17/20 22:54 04/17/20 22:54 Labs: Laboratory Last Values WBC 8.5 K/mm3 (4.5-11.0) 04/17/20 22:54 RBC 5.10 M/mm3 (3.65-5.03) H 04/17/20 22:54 Hgb 12.0 gm/dl (10.1-14.3) 04/17/20 22:54 Hct 37.8 % (30.3-42.9) 04/17/20 22:54 MCV 74 fl (79-97) L 04/17/20 22:54 MCH 24 pg (28-32) L 04/17/20 22:54 MCHC 32 % (30-34) 04/17/20 22:54 RDW 15.7 % (13.2-15.2) H 04/17/20 22:54 Plt Count 522 K/mm3 (140-440) H 04/17/20 22:54 Baso % (Auto) Marshmallow Machine Operator 04/17/20 22:54 Sodium 134 mmol/L (137-145) L 04/17/20 22:54 Potassium 4.3 mmol/L (3.6-5.0) 04/17/20 22:54 Chloride 99.7 mmol/L (98-107) 04/17/20 22:54 Carbon Dioxide 18 mmol/L (22-30) L 04/17/20 22:54 Anion Gap 21 mmol/L 04/17/20 22:54 BUN 56 mg/dL (7-17) H 04/17/20 22:54 Creatinine 2.3 mg/dL (0.6-1.2) H 04/17/20 22:54 Estimated GFR 25 ml/min 04/17/20 22:54 BUN/Creatinine Ratio 24 % 04/17/20 22:54 Glucose 127 mg/dL (65-100) H 04/17/20 22:54 Calcium 8.5 mg/dL (8.4-10.2) 04/17/20 22:54 Troponin T < 0.010 ng/mL (0.00-0.029) 04/17/20 22:54 - Imaging and Cardiology Chest x-ray: image reviewed Assessment and Plan - Patient Problems (1) Acute chest pain Current Visit: Yes Status: Acute Plan to address problem: Admit the patient to the medical telemetry. Aspirin 81 mg p.o. daily. Lipitor 40 mg p.o. daily. Due to the serial cardiac enzyme. We also do a echocar diogram. Apixaban 2.5 mg p.o. twice daily. If needed please consult cardiology in the morning. Recheck lipid panel. Apixaban for DVT prophylaxis and Protonix 40 mg p.o. twice daily for the GI prophylaxis (2) Acute on chronic kidney failure Current Visit: Yes Status: Acute Qualifiers: Acute renal failure type: unspecified Chronic kidney disease stage: unspecified stage Qualified Code(s): N17.9 - Acute kidney failure, unspecified; N18.9 - Chronic kidney disease, unspecified Plan to address problem: IV fluid half-normal saline at the rate of 100 cc/h. Avoid nephrotoxic drug. We discontinue the bumetanide. Recheck BMP in the morning (3) SOB (shortness of breath) Current Visit: Yes Status: Acute Plan to address problem: Oxygen per nasal cannula 3 L/min. DuoNeb by nebulizer every 4 hours as needed
[2020-04-18] MEDS ORDERED: ASPIRIN 325 MG TAB PO ONE (01:34)
[2020-04-18] MEDS: APIXABAN 2.5 MG TAB PO SCH ×3 (01:41→23:32)
[2020-04-18] MEDS: SODIUM CHLORIDE 0.45% 1000 ML 1,000 ML IV SCH (04:07)
[2020-04-18 05:03] LABS: Calcium 8.5 mg/dL (8.4-10.2)
[2020-04-18 05:06] LABS: Basophils % (Auto) 0.3 % (0.0-1.8); Eosinophils # (Auto) 0.1 K/mm3 (0.0-0.4); Eosinophils % (Auto) 2.2 % (0.0-4.3); Hematocrit 34.9 % (30.3-42.9); Hemoglobin 11.1 gm/dl (10.1-14.3); Lymphocytes # (Auto) 1.4 K/mm3 (1.2-5.4); Lymphocytes % (Auto) 21.1 % (13.4-35.0); Mean Corpuscular HGB Conc 32 % (30-34); Mean Corpuscular Volume 74 fl (79-97); Monocytes # (Auto) 0.7 K/mm3 (0.0-0.8); Platelet Count 477 K/mm3 (140-440); Red Blood Count 4.73 M/mm3 (3.65-5.03); Red Cell Distribution Width 15.8 % (13.2-15.2)
[2020-04-18] MEDS: hydrALAZINE 25 MG TAB PO SCH ×3 (05:34→23:29)
[2020-04-18 06:45] LABS: Anisocytosis 1+; Total Cells Counted 100
[2020-04-18 06:47] LABS: Platelet Estimate Consistent w Auto
[2020-04-18] MEDS ORDERED: NON-FORMULARY EACH (Insulin Aspart (Nf) 100 UNIT/ML Units) SQ SCH (08:00)
[2020-04-18] MEDS: INSULIN LISPRO 100 UNIT/ML VIAL 3 mL SUB-Q SCH ×3 (08:52→19:02)
[2020-04-18] MEDS ORDERED: PANTOPRAZOLE 40 MG TAB PO SCH (10:00)
[2020-04-18] MEDS: ASPIRIN EC 81 MG TAB PO SCH (10:42)
[2020-04-18] MEDS: ZINC SULFATE 220 MG CAP PO SCH ×2 (10:43→23:42)
[2020-04-18] MEDS: PANTOPRAZOLE 40 MG TAB PO SCH ×2 (10:43→23:39)
[2020-04-18] MEDS: DEXAMETHASONE 4 MG TAB PO SCH (10:48)
[2020-04-18] MEDS: amLODIPine 10 MG TAB PO SCH (11:41)
[2020-04-18] MEDS: METOPROLOL SUCCINATE XL 25 MG TAB PO SCH (11:42)
--- NOTE | 2020-04-18 14:41 | Event Note ---
Date: 04/18/20 79 year old F here with chest pain. Saw and examined patient at bedside. No chest pain at present. Troponin x2 negative Plan for lexiscan tomorrow. Monitor closely today NPO after MN Will document a full progress note tomorrow
[2020-04-18] MEDS: GABAPENTIN 300 MG CAP PO SCH (19:02)
[2020-04-18] MEDS ORDERED: LATANOPROST 0.005% OPHTH SOLN 2.5 ML OU SCH (22:00)
[2020-04-18] MEDS ORDERED: INSULIN GLARGINE 100 UNITS/ML SUB-Q SCH (22:00)
[2020-04-19] MEDS: hydrALAZINE 25 MG TAB PO SCH ×2 (06:55→14:11)
[2020-04-19] MEDS: INSULIN LISPRO 100 UNIT/ML VIAL 3 mL SUB-Q SCH ×3 (08:46→18:15)
[2020-04-19] MEDS ORDERED: REGADENOSON 0.4 MG/5 ML INJ IV ONE ×2 (09:36→09:39)
--- NOTE | 2020-04-19 10:45 | Treadmill Report ---
THALLIUM STRESS TEST LEFT VENTRICLE: Left ventricular chamber size is within normal spread. Perfusion study demonstrates homogeneous uptake of the tracer in all segments, no defects identified. Gated analysis demonstrates normal left ventricular systolic function, ejection fraction 72%. CONCLUSION: Normal myocardial perfusion study. JOB# [id number] CA/NTS
[2020-04-19] MEDS: APIXABAN 2.5 MG TAB PO SCH (10:56)
[2020-04-19] MEDS: ASPIRIN EC 81 MG TAB PO SCH (10:56)
[2020-04-19] MEDS: PANTOPRAZOLE 40 MG TAB PO SCH (10:56)
[2020-04-19] MEDS: METOPROLOL SUCCINATE XL 25 MG TAB PO SCH (10:57)
[2020-04-19] MEDS: amLODIPine 10 MG TAB PO SCH (10:57)
[2020-04-19] MEDS: DEXAMETHASONE 4 MG TAB PO SCH (11:48)
[2020-04-19] MEDS: SODIUM CHLORIDE 0.45% 1000 ML 1,000 ML IV SCH (12:27)
--- NOTE | 2020-04-19 13:38 | Discharge Summary ---
Providers - Providers Date of Admission: 04/18/20 00:00 Date of discharge: 04/19/20 Attending physician: RASHEL UNGER 04/18/20 Consult to Cardiac Rehabilitation [CONS] Routine Reason For Exam: Phase I Primary care physician: MAGAZINE REPAIRER Hospitalization Condition: Critical Hospital course: 79-year-old female was brought to the emergency room because of chest pain and shortness of breath. chest pain is 6/10 retrosternal nonradiating started yesterday. Patient states the chest pain is worsening. Patient states the pain is better with rest and worse with exertion. Patient states her shortness of breath is better with rest and worse with exertion. Patient denies fever or chills. Patient denies cough. Patient denies nausea and vomiting. Patient denies diaphoresis In the ER patient cardiac enzyme is negative but patient BUN is 56 creatinine 2.3 She was placed on observation for a stress test. Her chest pain has since resolved since she got to the hospital. She was scheduled for a stress test. Her stress test shows no reversible ischemia. I reviewed her labs and it showed elevated Cr 2.3 which is elevated compared with a month ago. 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 She will use bumetanide when she has weight gain > 3 pounds. I discussed with patients son Giacomo as well and updated him. She remains stable and will be discharged home today. Disposition: TO HOME OR SELFCARE Time spent for discharge: 30mins - Discharge Diagnoses (1) Acute on chronic kidney failure Status: Acute Qualifiers: Acute renal failure type: unspecified Chronic kidney disease stage: unspecified stage Qualified Code(s): N17.9 - Acute kidney failure, unspecified; N18.9 - Chronic kidney disease, unspecified (2) Chest pain Status: Acute Qualifiers: Chest pain type: unspecified Qualified Code(s): R07.9 - Chest pain, unspecified (3) CKD (chronic kidney disease) Status: Acute Qualifiers: Chronic kidney disease stage: unspecified stage Qualified Code(s): N18.9 - Chronic kidney disease, unspecified Core Measure Documentation - Palliative Care Palliative Care/ Comfort Measures: Not Applicable - Core Measures Any of the following diagnoses?: none Exam - Constitutional Vitals: Temp Pulse Resp BP Pulse Ox 98.5 F 88 18 142/56 100 04/19/20 09:23 04/19/20 10:57 04/19/20 10:55 04/19/20 10:57 04/19/20 10:55 General appearance: Present: no acute distress, well-nourished - EENT Eyes: Present: PERRL ENT: hearing intact, clear oral mucosa - Neck Neck: Present: supple, normal ROM - Respiratory Respiratory effort: normal Respiratory: bilateral: CTA - Cardiovascular Heart Sounds: Present: S1 & S2. Absent: rub, click - Extremities Extremities: pulses symmetrical, No edema Peripheral Pulses: within normal limits - Abdominal General gastrointestinal: Present: soft, non-tender, non-distended, normal bowel sounds Female genitourinary: Present: normal - Integumentary Integumentary: Present: clear, warm, dry - Musculoskeletal Musculoskeletal: gait normal, strength equal bilaterally - Psychiatric Psychiatric: appropriate mood/affect, intact judgment & insight - Neurologic Neurologic: CNII-XII intact, moves all extremities Plan Activity: no restrictions Diet: low fat, low salt, diabetic Additional Instructions: Stop using bumetanide every day for now. Use only for weight gain more than 3 pounds until you see your PCP or glass blowing lathe operator. Follow- up with PCP within a week for repeat labs. Continue rest of home medications Follow up with: PRIMARY MD FUENTES [Primary Care Provider] - 7 Days MATTHEW ALMANZAR MD [Staff Physician] - 7 Days
[2020-04-19] MEDS: ZINC SULFATE 220 MG CAP PO SCH (14:04)
[2020-04-19 17:03] VITALS: BP 138/62
[2020-04-19] MEDS: GABAPENTIN 300 MG CAP PO SCH (18:15)
== END 2020-04-19 18:59 | disposition home or self-care (01) ==
LOC: ED 22:03 → 4A 04-18
PROVIDERS: ADMIT Hospitalist; ATTEND Internal Medicine
DX: I13.0 Hypertensive heart and chronic kidney disease with heart failure and stage 1 through stage 4 chronic kidney disease, or unspecified chronic kidney disease (principal); I50.9 Heart failure, unspecified; N17.9 Acute kidney failure, unspecified; N18.9 Chronic kidney disease, unspecified; E87.2 Acidosis; M19.90 Unspecified osteoarthritis, unspecified site; K21.9 Gastro-esophageal reflux disease without esophagitis; E78.00 Pure hypercholesterolemia, unspecified; Z79.4 Long term (current) use of insulin; Z79.82 Long term (current) use of aspirin; Z98.890 Other specified postprocedural states; Z79.899 Other long term (current) drug therapy
CPT/HCPCS: 36415; 71045; 78452; 80048; 82962; 84484; 85025; 93005; 93017; 93306; 96360; 96361; 99291; A9270; A9502; G0378; J1815; J2785; J7030; J8540; 85007

== ENCOUNTER 2021-04-15 15:16 | Emergency (ER) | payer MEDICARE ==
[2021-04-15 15:23] VITALS: BP 134/65
--- NOTE | 2021-04-15 16:55 | Emergency Department Report ---
ED Palpitations HPI - General Chief Complaint: Arrhythmia/Palpitations Stated Complaint: rapid heart beat Time Seen by Provider: 04/15/21 15:40 Source: patient Mode of arrival: Ambulatory Limitations: No Limitations - History of Present Illness Initial Comments: Patient presents with a couple day history of pounding heartbeat and skipping beats. She states she has been having palpitations. There is no cough or congestion. No fevers or chills. There is no vomit or diarrhea. She states that she feels like she is "dehydrating." She states that she would like her blood sugar checked. She is known to be diabetic. She has no nausea or vomiting. She has been drinking fluids and eating solids. She denies recent caffeine use. She has had no other stimulant use. She has no chest pain or shortness of breath associated with this. - Related Data Home Medications Medication Instructions Recorded Confirmed Last Taken Insulin Glargine [Lantus VIAL] 45 unit SUB-Q QHS 10/10/14 04/18/20 04/07/20 Gabapentin 300 mg PO QPM 10/30/18 04/18/20 04/07/20 Latanoprost 0.005% 1 drop OU QHS 10/30/18 04/18/20 04/07/20 AtorvaSTATin [Lipitor] 20 mg PO DAILY 01/09/19 04/18/20 04/08/20 Insulin Aspart (Nf) [NovoLOG 100 10 unit SQ TID 01/09/19 04/18/20 04/08/20 UNITS/ML VIAL] Pantoprazole [Protonix TAB] 40 mg PO DAILY 01/09/19 04/18/20 04/08/20 Aspirin EC [Halfprin EC] 81 mg PO QDAY 01/27/19 04/18/20 04/08/20 Metoprolol Xl [Metoprolol 25 mg PO QDAY 01/27/19 04/18/20 04/08/20 SUCCINATE ER TAB] amLODIPine 10 mg PO DAILY 01/27/19 04/18/20 04/08/20 Bumetanide 0.5 mg PO DAILY 04/08/20 04/18/20 04/08/20 Previous Rx's Medication Instructions Recorded Last Taken Type Apixaban [Eliquis] 2.5 mg PO Q12HR #20 tablet 04/10/20 Unknown Rx Ascorbic Acid [Vitamin C] 500 mg PO QDAY #10 tablet 04/10/20 Unknown Rx Cholecalciferol (Vitamin D3) 5,000 unit PO DAILY #10 tablet 04/10/20 Unknown Rx [Vitamin D3] Zinc Sulfate 220 mg PO BID #20 capsule 04/10/20 Unknown Rx hydrALAZINE [Apresoline TAB] 50 mg PO Q8HR #90 tablet 04/10/20 Unknown Rx Allergies Allergy/AdvReac Type Severity Reaction Status Date / Time No Known Allergies Allergy Verified 10/03/18 08:49 ED Review of Systems ROS: Stated complaint: rapid heart beat Other details as noted in HPI Comment: All other systems reviewed and negative Constitutional: denies: fever Eyes: denies: eye pain ENT: denies: throat pain Respiratory: denies: cough Cardiovascular: as per HPI Endocrine: denies: unexplained weight loss Gastrointestinal: denies: abdominal pain Genitourinary: denies: dysuria Musculoskeletal: denies: back pain Skin: denies: rash Neurological: denies: headache Hematological/Lymphatic: denies: easy bruising ED Past Medical Hx - Past Medical History Previous Medical History?: Yes Hx Hypertension: Yes Hx Congestive Heart Failure: Yes Hx Diabetes: Yes Hx GERD: Yes Hx Renal Disease: Yes (no dialysis at this time) Hx Arthritis: Yes Hx Asthma: No Additional medical history: High cholesterol - Surgical History Past Surgical History?: Yes Additional Surgical History: Chase. lumpectomy - Family History Family history: diabetes, hypertension - Social History Smoking Status: Never Smoker - Medications Home Medications: Home Medications Medication Instructions Recorded Confirmed Last Taken Type Insulin Glargine [Lantus VIAL] 45 unit SUB-Q QHS 10/10/14 04/18/20 04/07/20 History Gabapentin 300 mg PO QPM 10/30/18 04/18/20 04/07/20 History Latanoprost 0.005% 1 drop OU QHS 10/30/18 04/18/20 04/07/20 History AtorvaSTATin [Lipitor] 20 mg PO DAILY 01/09/19 04/18/20 04/08/20 History Insulin Aspart (Nf) [NovoLOG 100 10 unit SQ TID 01/09/19 04/18/20 04/08/20 History UNITS/ML VIAL] Pantoprazole [Protonix TAB] 40 mg PO DAILY 01/09/19 04/18/20 04/08/20 History Aspirin EC [Halfprin EC] 81 mg PO QDAY 01/27/19 04/18/20 04/08/20 History Metoprolol Xl [Metoprolol 25 mg PO QDAY 01/27/19 04/18/20 04/08/20 History SUCCINATE ER TAB] amLODIPine 10 mg PO DAILY 01/27/19 04/18/20 04/08/20 History Bumetanide 0.5 mg PO DAILY 04/08/20 04/18/20 04/08/20 History Apixaban [Eliquis] 2.5 mg PO Q12HR #20 tablet 04/10/20 04/18/20 Unknown Rx Ascorbic Acid [Vitamin C] 500 mg PO QDAY #10 tablet 04/10/20 04/18/20 Unknown Rx Cholecalciferol (Vitamin D3) 5,000 unit PO DAILY #10 tablet 04/10/20 04/18/20 Unknown Rx [Vitamin D3] Zinc Sulfate 220 mg PO BID #20 capsule 04/10/20 04/18/20 Unknown Rx hydrALAZINE [Apresoline TAB] 50 mg PO Q8HR #90 tablet 04/10/20 04/18/20 Unknown Rx ED Physical Exam - General Limitations: No Limitations, Other (Pulse ox noted and normal) General appearance: alert, in no apparent distress - Head Head exam: Present: atraumatic, normocephalic - Eye Eye exam: Present: normal appearance, EOMI - ENT ENT exam: Present: normal orophraynx, mucous membranes moist, normal external ear exam - Neck Neck exam: Present: normal inspection, meningismus - Respiratory Respiratory exam: Present: normal lung sounds bilaterally. Absent: respiratory distress - Cardiovascular Cardiovascular Exam: Present: regular rate (90 on my exam), normal rhythm - GI/Abdominal GI/Abdominal exam: Present: soft. Absent: distended - Extremities Exam Extremities exam: Present: normal capillary refill. Absent: pedal edema - Back Exam Back exam: Absent: CVA tenderness (R), CVA tenderness (L) - Neurological Exam Neurological exam: Present: alert, oriented X3, normal gait. Absent: motor sensory deficit - Psychiatric Psychiatric exam: Present: normal mood, anxious - Skin Skin exam: Present: warm, dry ED Course Vital Signs 04/15/21 15:21 Temperature 98.8 F Pulse Rate 109 H Respiratory 16 Rate Blood Pressure 134/65 [Left] O2 Sat by Pulse 97 Oximetry - Reevaluation(s) Reevaluation #1: 04/15/21 17:14 Glucose was noted. EKG was noted. Patient has no evidence of dysrhythmia. She is not hypoglycemic. She will be treated symptomatically. ED Medical Decision Making - EKG Data -: EKG Interpreted by Me - EKG Data 04/15/21 17:14 EKG shows a normal sinus rhythm at 97. Intervals are normal including QRS of 88 and a QT corrected of 431. Patient has no ST elevation suggestive of STEMI. There is no ST depression suggestive of ischemia. - Medical Decision Making Patient presents with palpitations. There is no evidence of dysrhythmia at this time. She does not appear to be dyspneic. She has no chest pain. She is not tachypneic. There is no Kussmaul respirations. I am not concerned for DKA. She was treated symptomatically and referred for outpatient evaluation and follow-up. Critical Care Time: No Critical care attestation.: If time is entered above; I have spent that time in minutes in the direct care of this critically ill patient, excluding procedure time. ED Disposition Clinical Impression: Palpitations Disposition: HOME / SELF CARE / HOMELESS Is pt being admited?: No Condition: Stable Instructions: Palpitations Additional Instructions: Continue home medication. Drink plenty water. Avoid caffeine and other stimulants. Follow-up with your regular doctor or the referral doctor as described. Referrals: PRIMARY CAREMD [Referring] - 3-5 Days SHAHRAM STARKEY MD [Staff Physician] - 3-5 Days
[2021-04-15 17:36] LABS: Bilirubin,Urine NEG (Negative); Blood,Urine NEG (Negative); Color,Urine Straw (Yellow); Protein,Urine <15 mg/dL mg/dL (Negative); Urobilinogen,Urine < 2.0 mg/dL (<2.0)
--- NOTE | 2021-04-19 09:15 | Electrocardiograph Report ---
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
== END 2021-04-15 17:45 | disposition home or self-care (01) ==
LOC: ED 15:16
DX: R00.2 Palpitations (principal); K21.9 Gastro-esophageal reflux disease without esophagitis; E11.9 Type 2 diabetes mellitus without complications; I11.0 Hypertensive heart disease with heart failure; I50.9 Heart failure, unspecified; N28.9 Disorder of kidney and ureter, unspecified; M19.90 Unspecified osteoarthritis, unspecified site; Z98.890 Other specified postprocedural states
CPT/HCPCS: 81001; 82962; 93005; 99283